=== PATIENT | female | born 1960 | race African-American/Black ===

== ENCOUNTER 2019-08-15 22:01 | Emergency (ER) | payer MEDICARE, MEDICAID, SELFPAY ==
--- NOTE | ~2019-08-15 | XR_ITS ---
XR chest 1V portable DATE: 08/16/2019 00:16 INDICATION: Dizziness TECHNIQUE: AP chest COMPARISON: 12/15/2014 2 view chest FINDINGS: Normal heart size. No hilar or mediastinal enlargement. No pulmonary infiltrate or consolid ation, pleural effusion or pulmonary vascular congestion or pneumothorax. Degenerative change of the thoracic spine. IMPRESSION: No active cardiac pulmonary disease Resolution of congestive changes compared to 12/15/2014 Reviewed, dictated and finalized at location A. ON WASHER
--- NOTE | ~2019-08-15 | CT_ITS ---
EXAMINATION: CT brain wo con DATE: 08/16/2019 00:11 INDICATION: Frontal headache. Dizziness. Nausea and vomiting. TECHNIQUE: Computed tomography (CT) of the head was performed without intravenous contrast. The mA wa s adjusted according to patient size. Iterative reconstruction technique was employed. Exam dose: 60 5.33 mGy-cm total exam DLP. COMPARISON: 05/04/2010 CT brain examination FINDINGS: Bilateral basal ganglia calcification. No intracranial mass lesion or hemorrhage or cerebro vascular accident is evident. No midline shift or mass effect. Bilateral carotid siphon internal pastrana tid artery calcifications are noted. There is nonspecific diminished attenuation of the cerebral whit e matter, likely due to chronic small vessel ischemic changes. Normal ventricular size. No subdural o r epidural hematoma. No fracture or bone destruction of the cranial vault. The mastoid air cells are normally developed an d aerated. IMPRESSION: Cerebral atherosclerosis and chronic small vessel ischemic changes of the cerebral white matter Chronic bilateral basal ganglia calcifications No acute intracranial abnormality Reviewed, dictated and finalized at [facility]. Reviewed, dictated and finalized at location A. ERSION DEVELOPER
[2019-08-15 22:06] VITALS: BP 165/98; PULSE 83; RESP 16; TEMP 36.4; O2SAT 100
--- NOTE | 2019-08-15 22:56 | ED.DIZZY ---
HPI - Dizziness General Chief Complaint: Dizziness Stated Complaint: dizzy, duarte, vomiting since 8 Time Seen by Provider: 08/15/19 22:40 Source: patient, family and RN notes reviewed Mode of arrival: ambulatory Limitations: no limitations History of Present Illness HPI Narrative: Pt is a 59 y/o female with a Hx of DM, who presents to the ED with c/o dizziness starting this evening. She notes that she developed cold symptoms, including a cough roughly 1 week ago. Pt states that she suddenly felt weak and passed out while walking from her bathroom 1 week ago. Her family notes that she was unconscious for roughly 2-3 minutes. She reports similar dizziness at that time. She notes that she hasn't taken her insulin today, and states that she had 2 shots of tequila this evening. Pt notes that she was sitting in her chair later this evening when she suddenly became dizzy. She states that she then became nauseas and vomited a total of seven times. Pt notes that the room began to spin when she tried standing up. She currently reports a frontal headache, but denies any CP or ABD pain. Pt currently takes ASA 81 mg daily. MD elicited complaint: dizziness Onset (ago): hour(s) (several) Timing: sudden onset Description: room spinning Context: at rest History of similar symptoms: Yes Exacerbating factors: change in body position Associated symptoms: nausea, vomiting and other (frontal headache; cough) Related Data Allergies Allergy/AdvReac Type Severity Reaction Status Date / Time codeine Allergy Mild RASH, Verified 08/15/19 22:18 ITCHING guaifenesin Allergy Mild RASH, Verified 08/15/19 22:18 ITCHING morphine Allergy Mild Nausea and Verified 08/15/19 22:18 Vomiting oxycodone Allergy Mild Rash Verified 08/15/19 22:18 Penicillins Allergy Unknown rash Verified 08/15/19 22:18 Review of Systems Review of Systems: All systems reviewed & are unremarkable except as noted in HPI and below Cardiovascular: Cardiovascular: Denies chest pain Respiratory: Respiratory: Reports cough Gastrointestinal: Gastrointestinal: Denies abdominal pain, Reports nausea and Reports vomiting Neurologic: Reports dizziness and Reports headache(s) (frontal) PMFSH Past Medical History Medical History Asthma Bronchitis CHF (congestive heart failure) DM type 2 (diabetes mellitus, type 2) insulin dependent GERD (gastroesophageal reflux disease) History of angina HLD (hyperlipidemia) HTN (hypertension) Migraines Myocardial infarction Surgical History Surgical History History of hysterectomy Hx of appendectomy Hx of cardiac catheterization Hx of tonsillectomy Social History Social History Smoking status: Never smoker Exam Narrative: Exam Narrative: General appearance: Well-developed, well-nourished, restless, family member at the bedside Skin: Normal color Head: Normocephalic, nontraumatic Eyes: Clear conjunctiva ENT: Oropharynx normal, ears normal, nose normal Neck: Supple, nontender Chest and respiratory: Airway patent, no respiratory distress, no accessory muscle use Heart: Regular rate/rhythm Abdomen: Soft, nontender, no organomegaly, quiet bowel sounds Vascular: Normal peripheral pulses, normal capillary refill. Musculoskeletal: Normal range of motion, nontender back Neurologic: Alert and oriented ?3, INFRASTRUCTURE TECHNICIAN is normal as tested, no gross motor deficit Course Course Emergency Course: Improving Vital Signs Vital signs: Vital Signs Temperature 36.4 C L 08/15/19 22:06 Pulse Rate 83 08/15/19 22:06 Respiratory R
[2019-08-15 23:11] VITALS: BP 170/96; PULSE 84; RESP 15; O2SAT 98
--- NOTE | 2019-08-15 23:35 | ECG_ITS ---
Measurements Intervals [place] Rate: 70 P: 51 [place]: 184 QRS: 37 QRSD: 138 T: 259 QT: 460 QTc: 498 Interpretive Statements SINUS RHYTHM WITH MARKED SINUS ARRHYTHMIA LEFT BUNDLE BRANCH BLOCK LEFT VENTRICULAR HYPERTROPHY AND ST-T CHANGE BASELINE ARTIFACT- I, II, III, AVR, AVL, AVF, V1-V6 ABNORMAL ECG Electronically Signed On 08-16-2019 7:11:47 GASTROENTEROLOGY MANAGER by Jono Kimbrough D.O.
[2019-08-15 23:36] LABS: Basophils Percent Auto 0.8 % (0.2-1.2); Eosinophils Percent Auto 0.5 % (0-4.4); Hematocrit 42.5 % (37.0-47.0); Hemoglobin 13.9 g/dL (12.0-15.0); Immature Granulocyte Absolute 0.02 K/mm3 (0.00-0.031); Immature Granulocyte Percent A 0.5 % (0-0.5); Lymphocytes Percent Auto 42.2 % (18.3-44.2); Mean Corpuscular HGB Conc 32.7 g/dl (32-36); Mean Corpuscular Hemoglobin 29.1 pg (26-34); Mean Corpuscular Volume 89.1 fl (80-100); Mean Platelet Volume 11.4 fl (7.4-10.4); Monocytes Absolute Auto 0.2 K/mm3 (0.1-0.6); Monocytes Percent Auto 5.3 % (2.6-8.5); Neutrophils Absolute Auto 1.9 K/mm3 (1.3-6.7); Neutrophils Percent Auto 50.7 % (45.5-73.1); Platelet Count Result 256 k/mm3 (150-375); Red Blood Count 4.77 M/mm3 (4.2-5.4); Red Cell Distribution Width 12.5 % (11.5-14.5); White Blood Count 3.8 K/mm3 (4.5-10.0)
[2019-08-15 23:47] LABS: Prothrombin Time 12.4 Seconds (11.1-14.7)
[2019-08-15 23:49] LABS: Alanine Aminotransferase 17 U/L (4-35); Albumin Level 4.2 g/dL (3.5-5.1); Alkaline Phosphatase 68 U/L (38-126); Aspartate Amino Transferase 20 U/L (14-36); Bilirubin,Total 0.6 mg/dL (0.2-1.3); Blood Urea Nitrogen 12 mg/dL (7-17); Calcium 8.7 mg/dL (8.4-10.2); Carbon Dioxide 27 mmol/L (22-30); Chloride 93 mmol/L (98-107); Estimated CRCL calculation 55 ml/min; Estimated Glomerular Filt Rate > 60; Glucose 249 mg/dL (65-105); Potassium 3.5 mmol/L (3.4-5.0); Sodium 136 mmol/L (137-145)
[2019-08-15 23:52] LABS: D Dimer 0.33 ug/mL (<0.48)
--- NOTE | 2019-08-15 23:56 | PC.NURSE ---
Pt family daugher Laurence Montiel- She has asked if we can check this patient to see if she is being poisoned. She stated her mother has not been feeling well for the past few months. She stated her mother has been dating a man for approx. one year. I asked if her mother has expressed any concerns or safety issues. She stated no but she is happier when he is not around . I told her I would give Dr. Cerrato the information. Dr. Cerrato given this information, he stated he will order a UDS.
[2019-08-16] LABS: Base Excess ABG 1.1 mEq/l (+/-2.0); Fractional Inspired Oxygen 21 %; HCO3 ABG 25.1 mEq/l (22.0-26.0); Oxygen Content ABG 21.2 %vol (16.0-22.0); Oxygen Saturation ABG 98.5 % (95.0-100.0); Oxyhemoglobin 96.6 % THb (90.0-100.0); PO2 ABG 122.2 mmHg (80.0-100.0); PO2 FiO2 Ratio Arterial Blood 5.82 %; Total Hemoglobin 15.5 g/dL (12.0-18.0); pH ABG 7.437 (7.350-7.450)
[2019-08-16 00:04] LABS: Device ROOM AIR; Modified Allen's Test Pass; Site Drawn RIGHT RADIAL
[2019-08-16 00:05] LABS: Troponin I < 0.012 ng/mL (0.000-0.034)
[2019-08-16 00:08] LABS: Add Urine Microscopic? YES; Appearance Urine Clear (Clear); Bacteria Urine Trace /hpf; Bilirubin Urine Negative (Negative); Blood Urine Negative (Negative); Color Urine Straw (Yellow); Glucose Urine UA 3+ mg/dL (Negative); Ketones Urine Negative (Negative); Leukocyte Esterase Ur Negative LEU/UL (Negative); Nitrate Urine Negative (Negative); Protein Urine Negative (Negative); RBC Urine 0-2 /hpf (0-2); Specific Grav Ur 1.007 (1.001-1.035); Squamous Epithelial Cell Urine Few /hpf (Few); Urobilinogen Urine Negative mg/dL (<2.0); WBC Urine 0-3 /hpf
[2019-08-16 00:21] VITALS: BP 157/87; BP 169/100; BP 184/101; PULSE 83; PULSE 84; PULSE 88
[2019-08-16 00:25] LABS: Amphetamine Screen Urine Negative (Negative); Barbiturate Screen Urine Negative (Negative); Benzodiazepines Screen Urine Negative (Negative); Cannabinoid Screen Urine Positive (Negative); Cocaine Screen Urine Negative (Negative); Methadone Screen Urine Negative (Negative); Opiate Screen Urine Negative (Negative); Phencyclidine Screen Urine Negative (Negative)
[2019-08-16 00:32] VITALS: BP 167/98; PULSE 81; RESP 20; O2SAT 100
--- NOTE | 2019-08-16 01:15 | PC.NURSE ---
Per EDP Saqib via verbal order read-back, give patient 650mg Tylenol PO.
[2019-08-16] MEDS: ACETAMINOPHEN 325 MG TABLET 650 MG PO (01:21)
[2019-08-16 01:39] VITALS: BP 153/97; PULSE 73; RESP 21; TEMP 37.1; O2SAT 100
[2019-08-19 14:59] LABS: Methyl Alcohol Level None Detected (None Detected)
== END 2019-08-16 01:40 | disposition home or self-care (01) ==
PROVIDERS: Emergency Provider Emergency Medicine; PCP Family Medicine
DX: R55 Syncope and collapse (principal); Z91.14 Patient's other noncompliance with medication regimen; F10.10 Alcohol abuse, uncomplicated; J45.909 Unspecified asthma, uncomplicated; I50.9 Heart failure, unspecified; E11.9 Type 2 diabetes mellitus without complications; K21.9 Gastro-esophageal reflux disease without esophagitis; E78.5 Hyperlipidemia, unspecified; I10 Essential (primary) hypertension; I25.2 Old myocardial infarction; Z79.4 Long term (current) use of insulin; Z79.82 Long term (current) use of aspirin; I44.7 Left bundle-branch block, unspecified; I51.7 Cardiomegaly
CPT/HCPCS: 36415; 36600; 70450; 71045; 80053; 80307; 81001; 82805; 84484; 84600; 85025; 85380; 85610; 85730; 93005; 99284; A9270

== ENCOUNTER 2019-12-02 09:03 | Outpatient (CLI) | payer MEDICARE, MEDICAID, SELFPAY ==
[2019-12-02 09:44] LABS: Basophils Absolute Auto 0.1 K/mm3 (0.0-0.1); Basophils Percent Auto 1.2 % (0.2-1.2); Eosinophils Percent Auto 0.8 % (0-4.4); Hematocrit 44.4 % (37.0-47.0); Hemoglobin 14.6 g/dL (12.0-15.0); Immature Granulocyte Absolute 0.02 K/mm3 (0.00-0.031); Immature Granulocyte Percent A 0.4 % (0-0.5); Lymphocytes Percent Auto 45.7 % (18.3-44.2); Mean Corpuscular HGB Conc 32.9 g/dl (32-36); Mean Corpuscular Hemoglobin 29.7 pg (26-34); Mean Corpuscular Volume 90.4 fl (80-100); Mean Platelet Volume 10.6 fl (7.4-10.4); Monocytes Absolute Auto 0.4 K/mm3 (0.1-0.6); Monocytes Percent Auto 7.5 % (2.6-8.5); Neutrophils Absolute Auto 2.1 K/mm3 (1.3-6.7); Neutrophils Percent Auto 44.4 % (45.5-73.1); Platelet Count Result 212 k/mm3 (150-375); Red Blood Count 4.91 M/mm3 (4.2-5.4); Red Cell Distribution Width 12.9 % (11.5-14.5); White Blood Count 4.8 K/mm3 (4.5-10.0)
[2019-12-02 09:55] LABS: Alanine Aminotransferase 26 U/L (4-35); Albumin Level 4.3 g/dL (3.5-5.1); Alkaline Phosphatase 73 U/L (38-126); Aspartate Amino Transferase 29 U/L (14-36); Bilirubin,Total 0.9 mg/dL (0.2-1.3); Blood Urea Nitrogen 13 mg/dL (7-17); Calcium 8.7 mg/dL (8.4-10.2); Carbon Dioxide 30 mmol/L (22-30); Chloride 100 mmol/L (98-107); Cholesterol 120 mg/dL (0-200); Estimated Glomerular Filt Rate 56; Glucose 162 mg/dL (65-105); HDL Direct 52 mg/dL; Potassium 4.1 mmol/L (3.4-5.0); Sodium 137 mmol/L (137-145); Triglycerides 107 mg/dL (<150)
[2019-12-02 10:04] LABS: NT Pro B Type Natriuretic Pept 109 PG/ML (5-100)
[2019-12-02 10:07] LABS: LDL Cholesterol Direct 55 mg/dL
[2019-12-02 10:26] LABS: Total Triiodothyronine (T3) 1.09 NG/ML (0.97-1.69)
[2019-12-02 10:33] LABS: Free T4 Free Thyroxine 1.27 ng/mL (0.78-2.19); Vitamin D 25 Hydroxy 18.7 ng/mL
[2019-12-02 10:51] LABS: Creatinine Urine 362.9 mg/dL; MALB Creatinine Ratio 6.5 mg/g (0-30); Microalbumin Urine Random 23.7 mg/L (0-16.7)
== END 2019-12-02 09:04 | disposition home or self-care (01) ==
PROVIDERS: PCP Family Medicine; Visit Provider Nurse Practitioner Family
DX: E11.65 Type 2 diabetes mellitus with hyperglycemia (principal); E11.22 Type 2 diabetes mellitus with diabetic chronic kidney disease; N18.2 Chronic kidney disease, stage 2 (mild); I13.0 Hypertensive heart and chronic kidney disease with heart failure and stage 1 through stage 4 chronic kidney disease, or unspecified chronic kidney disease; I50.32 Chronic diastolic (congestive) heart failure; E55.9 Vitamin D deficiency, unspecified; E78.5 Hyperlipidemia, unspecified
CPT/HCPCS: 36415; 80053; 80061; 82043; 82306; 83880; 84439; 84443; 84480; 85025

== ENCOUNTER 2019-12-18 10:18 | Emergency (ER) | payer MEDICARE, MEDICAID, SELFPAY ==
[2019-12-18] VITALS (8 sets, daily range): BP systolic 140–163; BP diastolic 82–90; PULSE 75–103; RESP 14–25; TEMP 36.2; O2SAT 98–100
--- NOTE | ~2019-12-18 | CT_ITS ---
EXAMINATION: CT brain wo con DATE: 12/18/2019 11:36 INDICATION: Syncope TECHNIQUE: Computed tomography (CT) of the head was performed without intravenous contrast. Sagittal and coronal reconstructions were performed. The mA was adjusted according to patient size. Iterative reconstruction technique was employed. The dose-length product was 605.33 mGy-cm. COMPARISON: head CT dated 08/16/2019 FINDINGS: No acute intracranial hemorrhage, acute infarction or abnormal extra axial fluid collection. No inter emilie change in symmetric pattern of chronic dystrophic versus atherosclerotic calcifications at the bi lateral basal ganglia and bilateral cerebellar hemispheres. There is mild scattered white matter hypo attenuation consistent with chronic small vessel ischemic disease. Ventricles are normal and symmetri c. No mass/mass effect. The orbits, paranasal sinuses and mastoid air cells are normal. IMPRESSION: 1. No acute intracranial process. 2. Mild scattered white matter hypoattenuation consistent with chronic small vessel ischemic disease. Reviewed, dictated and finalized at location A. IMPRESSION: 1. No acute intracranial process. 2. Mild scattered white matter hypoattenuation consistent with chronic small ve ssel ischemic disease.
--- NOTE | ~2019-12-18 | XR_ITS ---
XR chest 1V portable DATE: 12/18/2019 11:28 INDICATION: Syncope TECHNIQUE: Portable AP chest on 12/18/2019 at 1128 hours COMPARISON: 08/16/2019 AP chest FINDINGS: Normal heart size. No hilar or mediastinal enlargement. No pulmonary infiltrate or consolid ation, pleural effusion or pulmonary vascular congestion or pneumothorax. IMPRESSION: No active cardiopulmonary disease Reviewed, dictated and finalized at location A.
--- NOTE | ~2019-12-18 | CT_ITS ---
EXAMINATION: CT cervical spine wo con DATE: 12/18/2019 13:14 INDICATION: Neck pain TECHNIQUE: Computed tomography (CT) of the cervical spine was performed without intravenous contrast. The dose-length product (DLP) was 177.72 mGy-cm. Automated exposure control and iterative reconstruc tion technique were employed. COMPARISON: None FINDINGS: There is no fracture. There is advanced loss of intervertebral disc space height at C3-4 th rough C5-6. There is moderate to severe uncovertebral joint osteoarthritis at these levels. There are 2 mm of retrolisthesis of C5 on C6. The odontoid is intact. The vertebral body heights are maintaine d. Degenerative osteophytes project from the anterior endplates of multiple vertebral bodies. IMPRESSION: 1. Severe cervical spondylosis without acute findings. Reviewed, dictated and finalized at location A.
--- NOTE | 2019-12-18 10:32 | ECG_ITS ---
Measurements Intervals [place] Rate: 84 P: 37 MT: 167 QRS: 14 QRSD: 135 T: 191 QT: 417 QTc: 494 Interpretive Statements SINUS RHYTHM LEFT BUNDLE BRANCH BLOCK ABNORMAL ECG Electronically Signed On 12-18-2019 11:40:54 CDT by Jono Kimbrough D.O.
[2019-12-18 11:23] LABS: Basophils Percent Auto 0.5 % (0.2-1.2); Eosinophils Percent Auto 0.4 % (0-4.4); Hematocrit 48.2 % (37.0-47.0); Hemoglobin 16.2 g/dL (12.0-15.0); Immature Granulocyte Absolute 0.02 K/mm3 (0.00-0.031); Immature Granulocyte Percent A 0.4 % (0-0.5); Lymphocytes Absolute Auto 1.97 K/mm3 (0.9-3.2); Lymphocytes Percent Auto 35.5 % (18.3-44.2); Mean Corpuscular HGB Conc 33.6 g/dl (32-36); Mean Corpuscular Hemoglobin 30.3 pg (26-34); Mean Corpuscular Volume 90.1 fl (80-100); Mean Platelet Volume 10.5 fl (7.4-10.4); Monocytes Absolute Auto 0.3 K/mm3 (0.1-0.6); Monocytes Percent Auto 5.4 % (2.6-8.5); Neutrophils Absolute Auto 3.2 K/mm3 (1.3-6.7); Neutrophils Percent Auto 57.8 % (45.5-73.1); Platelet Count Result 263 k/mm3 (150-375); Red Blood Count 5.35 M/mm3 (4.2-5.4); Red Cell Distribution Width 12.9 % (11.5-14.5); White Blood Count 5.6 K/mm3 (4.5-10.0)
[2019-12-18] MEDS: SODIUM CHLORIDE 0.9% IV 1,000 ML 999 ML IV CONT ×2 (11:23→13:01)
[2019-12-18 11:37] LABS: Alanine Aminotransferase 30 U/L (4-35); Albumin Level 4.6 g/dL (3.5-5.1); Alkaline Phosphatase 75 U/L (38-126); Aspartate Amino Transferase 24 U/L (14-36); Blood Urea Nitrogen 17 mg/dL (7-17); Calcium 8.9 mg/dL (8.4-10.2); Carbon Dioxide 36 mmol/L (22-30); Chloride 96 mmol/L (98-107); Estimated CRCL calculation 46 ml/min; Estimated Glomerular Filt Rate 56; Glucose 140 mg/dL (65-105); Magnesium 1.9 mg/dL (1.6-2.3); Potassium 3.5 mmol/L (3.4-5.0); Sodium 137 mmol/L (137-145)
--- NOTE | 2019-12-18 11:38 | ED.SYNCOPE ---
HPI - Syncope General Chief Complaint: Syncope Stated Complaint: high blood pressure, blacked out Time Seen by Provider: 12/18/19 11:06 Source: patient Mode of arrival: ambulatory Limitations: no limitations History of Present Illness HPI narrative: Patient is a 59-year-old female who presents to emergency department for evaluation of 2 syncopal episodes that occurred this morning patient notes once in the shower and then again shortly thereafter patient notes that she does believe she hit her head and does have moderate headache. Patient denies other pain or complaint notes that she has not been sick denies sick contacts. Patient denies similar occurrence. Patient notes history of type 2 diabetes and hypertension. Patient notes she did recently have her blood pressure medicine increased by primary care. On arrival patient in the room in no distress resting comfortably Related Data Home Medications Medication Instructions Recorded Confirmed amlodipine 12/18/19 aspirin [Aspir-81] 81 mg PO DAILY 12/18/19 atorvastatin 12/18/19 canagliflozin 20 mg PO DAILY 12/18/19 furosemide 12/18/19 glipizide mg PO 12/18/19 hydralazine BID 12/18/19 insulin glargine [Lantus Solostar SUBCUT 12/18/19 U-100 Insulin] metoprolol succinate PO 12/18/19 omeprazole PO 12/18/19 sitagliptin 100 mg PO DAILY 12/18/19 spironolacton-hydrochlorothiaz 25 DAILY 12/18/19 Allergies Allergy/AdvReac Type Severity Reaction Status Date / Time codeine Allergy Mild RASH, Verified 12/18/19 11:23 ITCHING guaifenesin Allergy Mild RASH, Verified 12/18/19 11:23 ITCHING morphine Allergy Mild Nausea and Verified 12/18/19 11:23 Vomiting oxycodone Allergy Mild Rash Verified 12/18/19 11:23 Penicillins Allergy Unknown rash Verified 12/18/19 11:23 Review of Systems Review of Systems: All systems reviewed & are unremarkable except as noted in HPI and below PMFSH Past Medical History Medical History Asthma Bronchitis CHF (congestive heart failure) DM type 2 (diabetes mellitus, type 2) insulin dependent GERD (gastroesophageal reflux disease) History of angina HLD (hyperlipidemia) HTN (hypertension) Migraines Myocardial infarction Surgical History Surgical History History of hysterectomy Hx of appendectomy Hx of cardiac catheterization Hx of tonsillectomy Social History Social History Smoking status: Never smoker Gender identity (if verbalized by the patient): Female Exam Narrative: Exam Narrative: GENERAL: Well-appearing, well-nourished, and in no acute distress. HEAD: Normocephalic, atraumatic. EYES: PERRLA and EOMI. ENT: Nares clear, no rhinorrhea or epistaxis. Mucous membranes moist. Oropharynx without tonsillar hypertrophy exudate or other lesions. NECK: Supple. No adenopathy or masses. CHEST: Clear to auscultation. No respiratory distress. No wheezes rales or rhonchi HEART: Regular rate and rhythm. No murmur heard. Normal peripheral pulses. ABDOMEN: Soft, nontender, nondistended EXTREMITIES: Normal range of motion. No edema. No tenderness to palpation on the skeletal exam to include cervical thoracic lumbar and extremities SKIN: Warm, dry, no rash. NEURO: No focal deficits. Alert and oriented x3. Cranial nerves II through XII grossly intact PSYCH: Normal mood and affect. Course Course Emergency Course: Patient in the room resting comfortably in no distress aware of recommendations and discussion with hospitalist service and primary care and agrees to follow in clinic as instructed Consultations Consultation #[address]: [address] Camacho hospitalist regarding this patient does not feel the patient should need to stay in hospital and has not accepted the patient and recommends that she follow with primary care Discussed patient with Dr. Justice
[2019-12-18 11:39] LABS: INR 0.8
[2019-12-18 11:40] LABS: Partial Thromboplastin Time 22.5 SECONDS (22.3-36.8)
[2019-12-18 11:41] LABS: Add Urine Microscopic? YES; Appearance Urine Clear (Clear); Bacteria Urine 1+ /hpf; Bilirubin Urine Negative (Negative); Blood Urine Negative (Negative); Color Urine Yellow (Yellow); Glucose Urine UA Negative (Negative); Ketones Urine Negative (Negative); Leukocyte Esterase Ur Negative LEU/UL (Negative); Mucus Urine Rare /lpf; Nitrate Urine Positive (Negative); Protein Urine Negative (Negative); RBC Urine 0-2 /hpf (0-2); Specific Grav Ur 1.014 (1.001-1.035); Squamous Epithelial Cell Urine Many /hpf (Few); Urobilinogen Urine Negative mg/dL (<2.0)
[2019-12-18 11:45] LABS: NT Pro B Type Natriuretic Pept 141 PG/ML (5-100)
[2019-12-18 11:48] LABS: Troponin I < 0.012 ng/mL (0.000-0.034)
[2019-12-18 11:58] LABS: Amphetamine Screen Urine Negative (Negative); Barbiturate Screen Urine Negative (Negative); Benzodiazepines Screen Urine Negative (Negative); Cannabinoid Screen Urine Negative (Negative); Cocaine Screen Urine Negative (Negative); Methadone Screen Urine Negative (Negative); Opiate Screen Urine Negative (Negative); Phencyclidine Screen Urine Negative (Negative)
--- NOTE | 2019-12-18 13:05 | PC.NURSE ---
Pt to xray via stretcher.
[2019-12-18] MEDS: KETOROLAC 30 MG/ML VIAL (*BKC) IV PUSH (13:45)
== END 2019-12-18 14:24 | disposition home or self-care (01) ==
PROVIDERS: Emergency Medicine Emergency Medical Services; Emergency Provider Emergency Medicine; PCP Family Medicine
DX: R55 Syncope and collapse (principal); N39.0 Urinary tract infection, site not specified; Z95.0 Presence of cardiac pacemaker; J45.909 Unspecified asthma, uncomplicated; I11.0 Hypertensive heart disease with heart failure; I50.9 Heart failure, unspecified; E11.9 Type 2 diabetes mellitus without complications; Z79.4 Long term (current) use of insulin; K21.9 Gastro-esophageal reflux disease without esophagitis; E78.5 Hyperlipidemia, unspecified; I25.2 Old myocardial infarction; I44.7 Left bundle-branch block, unspecified; M47.812 Spondylosis without myelopathy or radiculopathy, cervical region
CPT/HCPCS: 36415; 70450; 71045; 72125; 80053; 80307; 81001; 83735; 83880; 84100; 84484; 85025; 85610; 85730; 93005; 96361; 96365; 96367; 96375; 99284; J0131; J0696; J1885; J7030

== ENCOUNTER 2021-03-24 08:12 | Outpatient (CLI) | payer MEDICARE, MEDICAID, SELFPAY ==
--- NOTE | ~2021-03-24 | MM_ITS ---
EXAMINATION: MM screening ryan BI w errol HISTORY: Screening TECHNIQUE: Craniocaudal and mediolateral oblique 3-D tomosynthesis images were obtained and synthetic 2-D images were generated. CAD analysis was submitted and interpreted. COMPARISON: 02/23/2015 BREAST PARENCHYMAL COMPOSITION: Breast composed of scattered areas of fibroglandular density. FINDINGS: There is no evidence of suspicious mass, calcification, or architectural distortion to sugg est malignancy in either breast. There has been no suspicious interval change. IMPRESSION: 1. No mammographic evidence of malignancy. 2. Recommend routine screening mammography in one year. BI-RADS Category 1: Negative Reviewed, dictated and finalized at location A.
== END 2021-03-24 08:13 | disposition home or self-care (01) ==
PROVIDERS: PCP Family Medicine; Visit Provider Family Medicine
DX: Z12.31 Encounter for screening mammogram for malignant neoplasm of breast (principal)
CPT/HCPCS: 77063; 77067

== ENCOUNTER 2021-10-20 13:25 | Observation (INO) | payer OTHER, SELFPAY ==
[2021-10-20] VITALS (13 sets, daily range): BP systolic 143–186; BP diastolic 54–114; PULSE 73–94; RESP 18–20; TEMP 36.3–36.7; O2SAT 97–100; BMI 29.5
--- NOTE | ~2021-10-20 | XR_ITS ---
XR chest 2V DATE: 10/20/2021 13:54 . INDICATION: Generalized chest pain. Shortness of breath. TECHNIQUE: PA and lateral views COMPARISON: 12/18/2019 portable AP chest FINDINGS: Normal heart size. No hilar or mediastinal enlargement. No pulmonary infiltrate or consolid ation, pleural effusion or pulmonary vessel congestion or pneumothorax. Mild degenerative spurring of the thoracic spine. IMPRESSION: No active cardiopulmonary disease Reviewed, dictated and finalized at location A.
--- NOTE | ~2021-10-20 | CT_ITS ---
EXAMINATION: CTA chest DATE: 10/21/2021 13:56 INDICATION: Chest pain radiating to back. Uncontrolled hypertension. Evaluate for aortic dissection. TECHNIQUE: Computed tomography (CT) of the chest was performed with 100 CC Omnipaque 350 intravenous contrast. Automated exposure control and iterative reconstruction technique were employed. Exam dose: 333.03 mGy-cm total exam DLP. COMPARISON: 10/20/2021 PA and lateral chest FINDINGS: No thoracic aortic aneurysm or dissection. Normal heart size. No hilar or mediastinal mass lesion or lymphadenopathy. No pulmonary infiltrate or consolidation or pulmonary mass lesion. 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 Diff fuse idiopathic skeletal hyperostosis of the thoracic spine. No suspicious osteolytic or osteoblastic lesions. IMPRESSION: No evidence of thoracic aortic aneurysm or dissection Reviewed, dictated and finalized at [facility]. Reviewed, dictated and finalized at location [facility].
--- NOTE | 2021-10-20 13:28 | ECG_ITS ---
Measurements Intervals [place] Rate: 68 P: 47 [place]: 170 QRS: 14 QRSD: 138 T: 124 QT: 425 QTc: 453 Interpretive Statements SINUS RHYTHM POSSIBLE LEFT ATRIAL ENLARGEMENT [-0.1mV P WAVE IN V1/V2] INTRAVENTRICULAR CONDUCTION DELAY [130+ ms QRS DURATION] LEFT VENTRICULAR HYPERTROPHY AND ST-T CHANGE [VOLTAGE CRITERIA PLUS ST/T ABNORMALITY] POOR R-WAVE PROGRESSION, WORSE COMPARED TO THE PRIOR TRACING. Electronically Signed On 10-20-2021 13:54:09 CDT by Rosemarie Lozano M.D.
[2021-10-20 13:49] LABS: Basophils Percent Auto 0.9 % (0.2-1.2); Eosinophils Percent Auto 0.9 % (0-4.4); Hematocrit 44.3 % (37.0-47.0); Hemoglobin 15.1 g/dL (12.0-15.0); Immature Granulocyte Absolute 0.02 K/mm3 (0.00-0.031); Immature Granulocyte Percent A 0.5 % (0-0.5); Lymphocytes Absolute Auto 2.11 K/mm3 (0.9-3.2); Lymphocytes Percent Auto 47.7 % (18.3-44.2); Mean Corpuscular HGB Conc 34.1 g/dl (32-36); Mean Corpuscular Hemoglobin 29.6 pg (26-34); Mean Corpuscular Volume 86.9 fl (80-100); Mean Platelet Volume 11.3 fl (7.4-10.4); Monocytes Absolute Auto 0.3 K/mm3 (0.1-0.6); Monocytes Percent Auto 7.2 % (2.6-8.5); Neutrophils Absolute Auto 1.9 K/mm3 (1.3-6.7); Neutrophils Percent Auto 42.8 % (45.5-73.1); Platelet Count Result 202 k/mm3 (150-375); Red Cell Distribution Width 12.1 % (11.5-14.5); White Blood Count 4.4 K/mm3 (4.5-10.0)
[2021-10-20 14:01] LABS: Alanine Aminotransferase 23 U/L (4-35); Albumin Level 4.2 g/dL (3.5-5.1); Alkaline Phosphatase 95 U/L (38-126); Anion Gap 4 mmol/L (8-16); Aspartate Amino Transferase 22 U/L (14-36); Blood Urea Nitrogen 14 mg/dL (7-17); Calcium 8.5 mg/dL (8.4-10.2); Carbon Dioxide 29 mmol/L (22-30); Chloride 100 mmol/L (98-107); Estimated CRCL calculation 60 ml/min; Estimated Glomerular Filt Rate > 60; Glucose 299 mg/dL (65-110); Lipase 61 U/L (23-300); Potassium 4.2 mmol/L (3.4-5.0); Sodium 133 mmol/L (137-145)
[2021-10-20 14:08] LABS: Partial Thromboplastin Time 25.7 SECONDS (22.3-36.8); Prothrombin Time 12.4 Seconds (11.1-14.7)
[2021-10-20 14:12] LABS: Troponin I < 0.012 ng/mL (0.000-0.034)
[2021-10-20] MEDS: ASPIRIN 81 MG CHEWABLE TABLET 324 MG PO (14:37)
--- NOTE | 2021-10-20 14:55 | ED.CHESTPAIN ---
HPI - Chest Pain General Chief Complaint: Chest Pain Stated Complaint: high bp chest pain Time Seen by Provider: 10/20/21 14:45 Source: patient Mode of arrival: ambulatory Limitations: no limitations History of Present Illness HPI narrative: Patient is a 59-year-old female complaining of chest pain, midsternal, nonradiating, pressure, 8 out of 10, earlier this morning lasted for an hour and now resolved. Patient had her first visit with her new PCP and told about the chest pain she had this morning so she was advised to go to the emergency room. Patient denies any abdominal pain, nausea, vomiting, diaphoresis, fever or chills. Related Data Home Medications Medication Instructions Recorded Confirmed amlodipine 12/18/19 aspirin [Aspir-81] 81 mg PO DAILY 12/18/19 atorvastatin 12/18/19 canagliflozin 20 mg PO DAILY 12/18/19 furosemide 12/18/19 glipizide mg PO 12/18/19 hydralazine BID 12/18/19 insulin glargine [Lantus Solostar SUBCUT 12/18/19 U-100 Insulin] metoprolol succinate PO 12/18/19 omeprazole PO 12/18/19 sitagliptin 100 mg PO DAILY 12/18/19 spironolacton-hydrochlorothiaz 25 DAILY 12/18/19 Allergies Allergy/AdvReac Type Severity Reaction Status Date / Time codeine Allergy Mild RASH, Verified 10/20/21 14:35 ITCHING guaifenesin Allergy Mild RASH, Verified 10/20/21 14:35 ITCHING morphine Allergy Mild Nausea and Verified 10/20/21 14:35 Vomiting oxycodone Allergy Mild Rash Verified 10/20/21 14:35 Penicillins Allergy Unknown rash Verified 10/20/21 14:35 Review of Systems Review of Systems: All systems reviewed & are unremarkable except as noted in HPI and below Constitutional: Constitutional: Denies body ache(s), Denies chills, Denies excessive sweating, Denies fatigue, Denies fever(s), Denies headache(s), Denies lethargy, Denies malaise, Denies weakness and Denies weight loss Eyes: Eyes: Denies blurry vision, Denies change in vision and Denies loss of vision ENT: Denies dizziness, Denies ear discharge, Denies headache(s), Denies lip swelling, Denies epistaxis, Denies nasal congestion, Denies neck pain, Denies throat swelling and Denies tongue swelling Cardiovascular: Cardiovascular: Denies diaphoresis, Denies rapid heart rate, Denies edema, Denies irregular heart rhythm, Denies lightheadedness and Denies palpitations Respiratory: Respiratory: Denies chest congestion, Denies cough, Denies hemoptysis, Denies dyspnea and Denies dyspnea on exertion Gastrointestinal: Gastrointestinal: Denies abdominal pain, Denies melena, Denies hematochezia, Denies diarrhea, Denies nausea, Denies vomiting and Denies hematemesis Musculoskeletal: Musculoskeletal: Denies abnormal gait, Denies deformity, Denies joint swelling, Denies limited range of motion, Denies neck pain and Denies numbness Neurologic: Denies Abnormal speech present, Denies abnormal gait, Denies confusion, Denies dizziness, Denies headache(s), Denies focal weakness, Denies loss of vision, Denies numbness, Denies Other visual disturbances, Denies Sensory deficit (Neuro) and Denies weakness Psychiatric: Psychiatric: Denies confusion, Denies depression, Denies auditory hallucinations, Denies homicidal ideation and Denies suicidal ideation Endocrine: Endocrine: Denies cold intolerance, Denies excessive sweating, Denies fatigue, Denies heat intolerance and Denies palpitations Hematologic/Lymphatic: Hematologic/Lymphatic: Denies easy bleeding and Denies easy bruising Allergic/Immunologic: Allergic/Immunologic: Denies lip swelling, Denies throat swelling and Denies tongue swelling [facility] Past Medical History Medical History (Updated 10/20/21 @ 16:30 by Moo Carrizales MD) Asthma Bronchitis CHF (congestive heart failure) DM type 2 (diabetes mellitus, type 2) insulin dependent GERD (gastroesophageal reflux disease) History of angina HLD (hyperlipidemia) HTN (hypertension) Migraines Myocardial infarction Surgical History Surgical History
[2021-10-20 15:21] LABS: NT Pro B Type Natriuretic Pept 174 pg/mL (5-100)
[2021-10-20 16:47] LABS: Troponin I < 0.012 ng/mL (0.000-0.034)
--- NOTE | 2021-10-20 17:47 | ADMGEN ---
This patient, Suze Munoz, was admitted to IMU Room 209-01. Patient/family oriented to hospital policies and general routines including ID bracelet, bed and alarms, visiting hours, pain management, procedures, bathroom and other care routines, personal items, smoking policy, room service/diet, and visiting hours. Information on how to activate the Rapid Response Team has been discussed. Patient/Family are encouraged to report perceived risks to care and to ask questions if they do not understand what they are told or what they should do.
[2021-10-20 19:49] LABS: Troponin I < 0.012 ng/mL (0.000-0.034)
--- NOTE | 2021-10-20 21:32 | PM.IMHP ---
H&P: HPI History of Present Illness Date/Time: Patient was placed observation status for expected length of stay less than 23 hours for management, will plan to re-evaluate tomorrow for improvement. 10/20/21 21:32 Chief Complaint: Chest pain Narrative: Ms. Alexander Reyes was female who presented to the emergency room with complaints of left-sided breast pain that radiated to her back and dyspnea on exertion. Patient states that the pain is off and on throughout the day today and last approximately 15 minutes at a time. Patient states that when she sits down to relax the pain goes away. Patient states that she feels somewhat short of breath with the pain, stating it hurts to take a deep breath so that is why she feels short of breath with the pain. Patient states she has noted some dyspnea on exertion over the last few days. Patient states she used to see Dr. Bergman at [facility] for her congestive heart failure. Patient states she did have a myocardial infarction 2014 and underwent cardiac catheterization and no stents were placed at that time. Patient states that she has been taking most of her medications, but she did run out of some over a month ago and since she has had to change insurance companies and does not have a primary care at this time she has not been able to get them filled. Patient states she has been taking her insulin and some of her cardiac medications, but she is not able to tell me which medications. Patient denies any lightheadedness, dizziness, palpitations, edema, or weight gain. As already stated patient states she had a myocardial infarction 2014 and underwent cardiac catheterization with no stent placement. Patient states she does have a history of congestive heart failure, hypertension, and diabetes mellitus. Patient states she had been following at [facility] for her heart, but since she has had an insurance change she will not be able to do this. Review of Systems Review of Systems: A 12 point review of systems was completed patient all pertinent positive and negative per HPI the remainder are unremarkable. [facility] Past Medical History Medical History (Updated 10/20/21 @ 21:56 by Yvette Doran APRN) Asthma Bronchitis CHF (congestive heart failure) DM type 2 (diabetes mellitus, type 2) insulin dependent GERD (gastroesophageal reflux disease) History of angina HLD (hyperlipidemia) HTN (hypertension) Migraines Myocardial infarction Surgical History Surgical History History of hysterectomy Hx of appendectomy Hx of cardiac catheterization Hx of tonsillectomy Family History Family History (Updated 10/20/21 @ 17:42 by Esme Lewis RN) Sibling Acute myocardial infarction Congestive heart failure Social History Social History Smoking status: Never smoker Alcohol intake: never Substance use: never Gender identity (if verbalized by the patient): Female Spiritual care concerns: No Meds Home Medications and Allergies Home Medications Medication Instructions Recorded Confirmed Type amlodipine 10 mg PO HS 12/18/19 10/20/21 History aspirin [Aspir-81] 81 mg PO HS 12/18/19 10/20/21 History atorvastatin 20 mg PO HS 12/18/19 10/20/21 History furosemide 40 mg PO HS 12/18/19 10/20/21 History glipizide 10 mg PO BIDWM 12/18/19 10/20/21 History hydralazine 200 mg PO HS 12/18/19 10/20/21 History insulin glargine [Lantus Solostar 25 unit SUBCUT DAILY 12/18/19 10/20/21 History U-100 Insulin] metoprolol succinate 100 mg PO HS 12/18/19 10/20/21 History omeprazole 20 mg PO HS 12/18/19 10/20/21 History sitagliptin 100 mg PO HS 12/18/19 10/20/21 History blood sugar diagnostic [True 10/20/21 10/20/21 History Metrix Glucose Test Strip] canagliflozin [Invokana] 100 mg PO DAILY 10/20/21 10/20/21 History carvedilol 25 mg PO HS 10/20/21 10/20/21 History ergoc
[2021-10-20 21:56] LABS: Glucose Point of Care 461 mg/dl (65-105)
[2021-10-20] MEDS: METOPROLOL SUCCINATE EXT REL 100 MG TABCR PO (22:57)
[2021-10-20] MEDS: FUROSEMIDE 40 MG TABLET PO (22:57)
[2021-10-20] MEDS: amLODIPine BESYLATE 5 MG TABLET 10 MG PO (22:57)
[2021-10-20] MEDS: carvediloL 25 MG TABLET PO (22:58)
[2021-10-20] MEDS: ISOSORBIDE DINITRATE 10 MG TABLET PO (22:58)
[2021-10-20] MEDS: SPIRONOLACTONE 25 MG TABLET PO (22:58)
[2021-10-20] MEDS: ATORVASTATIN 20 MG TABLET PO (22:58)
[2021-10-20] MEDS: ENOXAPARIN 40 MG/0.4 ML SYRINGE SUB-Q (22:59)
[2021-10-20] MEDS: hydrALAZINE HCL 50 MG TABLET 200 MG PO (22:59)
[2021-10-21] VITALS (10 sets, daily range): BP systolic 95–115; BP diastolic 52–66; PULSE 75–90; RESP 14–18; TEMP 36.6–37.2; O2SAT 96–100
--- NOTE | 2021-10-21 | ECHO_ITS ---
Patient Info Name: Suze Munoz Age: 61 years : 1960 Gender: Female Ht: 65 in Wt: 177 lbs BSA: 1.94 m2 HR: 78 bpm Technical Quality: Good Exam Date: 10/21/2021 9:26 AM Exam Location: [facility] Pulmonary Exam Room: [facility] Patient Status: Outpatient Admit Date: 10/20/2021 Staff Ordering Physician: Yvette Doran APRN Tin Can Laborer: Katherine Rodrigues RDCS Attending Provider: Jose Mcpherson MD Referring Physician: Ronen CALIXTO Exam Type: CA echo doppler color flow Study Info Indications - chest pain h/o chf Complete two-dimensional, color flow and Doppler transthoracic echocardiogram is performed. Summary 1. Complete two-dimensional, color flow and Doppler transthoracic echocardiogram is performed. 2. Left ventricular systolic function is normal, estimated at 55-60%. 3. There is mildly increased left ventricular wall thickness. 4. Left ventricular septal wall motion is abnormal with septal motion related to bundle branch block. 5. The left ventricular diastolic function is grade I diastolic dysfunction. 6. There is mild mitral valve calcification. 7. There is trace mitral valve regurgitation. 8. There is trace tricuspid valve regurgitation. 9. No pulmonary hypertension, estimated pulmonary arterial systolic pressure is 27 mmHg. Left Ventricle Left ventricular chamber dimension is normal. Left ventricular systolic function is normal, estimated at 55-60%. There is mildly increased left ventricular wall thickness. Left ventricular septal wall motion is abnormal with septal motion related to bundle branch block. The left ventricular diastolic function is grade I diastolic dysfunction. Right Ventricle Right ventricular chamber dimension is normal. Right ventricular systolic function is normal. Left Atria Left atrial chamber dimension is normal. Right Atria Right atrial chamber dimension is normal. Atrial Septum Intact interatrial septum visualized by color flow imaging. Aortic Valve The aortic valve is trileaflet. There is no aortic valve sclerosis. There is no aortic valve stenosis. There is no aortic valve regurgitation. Pulmonic Valve The pulmonic valve is normal. There is no pulmonic valve stenosis. There is no pulmonic regurgitation. Mitral Valve The mitral valve has normal leaflets. There is no mitral valve stenosis. There is trace mitral valve regurgitation. There is mild mitral valve calcification. Tricuspid Valve The tricuspid valve leaflets are normal. There is no significant tricuspid valve stenosis. There is trace tricuspid valve regurgitation. No pulmonary hypertension, estimated pulmonary arterial systolic pressure is 27 mmHg. Pericardium/Pleural The pericardium appears normal. There is no pericardial effusion. Inferior Vena Cava Normal inferior vena cava with >50% collapse upon inspiration consistent with Empty right atrial pressure, 5 mmHg. Aorta The aortic root size at the sinus of Valsalva is normal. The prox ascending aorta size is normal. Left Ventricular Outflow Tract Name Value Normal LVOT 2D LVOT Diameter 2.0 cm LVOT Doppler
[2021-10-21 05:11] LABS: Basophils Percent Auto 0.5 % (0.2-1.2); Eosinophils Percent Auto 0.3 % (0-4.4); Hematocrit 40.2 % (37.0-47.0); Hemoglobin 13.7 g/dL (12.0-15.0); Immature Granulocyte Absolute 0.04 K/mm3 (0.00-0.031); Immature Granulocyte Percent A 0.7 % (0-0.5); Lymphocytes Absolute Auto 1.11 K/mm3 (0.9-3.2); Lymphocytes Percent Auto 18.3 % (18.3-44.2); Mean Corpuscular HGB Conc 34.1 g/dl (32-36); Mean Platelet Volume 11.8 fl (7.4-10.4); Monocytes Absolute Auto 0.4 K/mm3 (0.1-0.6); Monocytes Percent Auto 5.8 % (2.6-8.5); Neutrophils Absolute Auto 4.5 K/mm3 (1.3-6.7); Neutrophils Percent Auto 74.4 % (45.5-73.1); Platelet Count Result 199 k/mm3 (150-375); Red Blood Count 4.57 M/mm3 (4.2-5.4); Red Cell Distribution Width 12.4 % (11.5-14.5); White Blood Count 6.1 K/mm3 (4.5-10.0)
[2021-10-21 05:25] LABS: Anion Gap 7 mmol/L (8-16); Blood Urea Nitrogen 19 mg/dL (7-17); Calcium 8.4 mg/dL (8.4-10.2); Carbon Dioxide 27 mmol/L (22-30); Chloride 99 mmol/L (98-107); Estimated CRCL calculation 42 ml/min; Estimated Glomerular Filt Rate 50; Glucose 397 mg/dL (65-110); Magnesium 1.8 mg/dL (1.6-2.3); Potassium 4.3 mmol/L (3.4-5.0); Sodium 133 mmol/L (137-145)
[2021-10-21 06:47] LABS: Hemoglobin A1C 10.6 % (<5.7)
[2021-10-21 08:25] LABS: Glucose Point of Care 316 mg/dl (65-105)
[2021-10-21] MEDS: INSULIN ASPART (*BKC) 100 UNITS/ML SUB-Q ×2 (09:16→14:20)
[2021-10-21] MEDS: INSULIN GLARGINE (*BKC) 100 UNITS/ML 25 UNITS SUB-Q (09:18)
[2021-10-21] MEDS: glipiZIDE XL 5 MG TABCR 10 MG PO (09:25)
[2021-10-21] MEDS: CANAGLIFLOZIN 100 MG TABLET PO (09:26)
[2021-10-21] MEDS: THERAPEUTIC MULTIVITAMINS/MINERALS TAB (*BKC) 1 TABLET PO (09:26)
[2021-10-21] MEDS: LOSARTAN POTASSIUM 25 MG TABLET PO (09:26)
--- NOTE | 2021-10-21 09:34 | PM.CNCAR ---
Assessment and Plan Assessment and plan (1) Chest pain: Qualifiers: Chest pain type: chest pain due to myocardial ischemia Ischemic chest pain type: stable angina pectoris Qualified Code(s): I20.8 - Other forms of angina pectoris Code(s): R07.9 - Chest pain, unspecified Status: Acute Assessment and Plan: Normal troponins. Atypical CP. Probably related to hypertension, with some muscular skeletal component as she has some tenderness to touch. Doubt cardiac issue. However, since it radiates to the back and she was admitted with severe uncontrolled hypertension we should check a CTA to make sure there is no aortic dissection etc. If Echo shows nothing surprising and CT OK, OK for discharge from my point of view. FU w/ usual inspector penetrant (2) Uncontrolled hypertension: Code(s): I10 - Essential (primary) hypertension Status: Acute Assessment and Plan: Running high at home, despite compliance w/ BP meds, but now doing fine. CYNTHIA w/ Dr. Aparicio and new inspector penetrant as OPT. (3) Stage 3b chronic kidney disease (CKD): Code(s): N18.32 - Chronic kidney disease, stage 3b Status: Acute Assessment and Plan: CKD stage 3b 2nd to DM and HTN (4) H/O CHF: Code(s): Z86.79 - Personal history of other diseases of the circulatory system Status: Acute Assessment and Plan: H/O CHF and cardiomyopathy. NO CHF at present. Additional Plan Addendum: Echo showed nml LV fxn, mild LVH and CT chest neg for dissection, OK for discharge. History of Present Illness History of Present Illness Consult date/time: 10/21/21 09:34 Requesting physician: Moo Carrizales MD Consult reason: chest pain Reason For Visit: Chest Pain Narrative: Suze Munoz is a 61 y.o. female whom I was asked to see at the request of Dr. Carrizales for my advice and opinion re: her chest pain and h/o CHF, in consultation. History of cardiomyopathy, difficult to control hypertension, CHF, diabetes, left bundle-branch block The patient has been followed Dr. Laughlin, last seen in June 2019. History of CHF and cardiomyopathy with a ejection fraction of 25% in 2014. Chest pain with cardiac catheterization in 2016 showing normal coronary arteries. She recently has been followed by Dr. Bergman at [facility], last time being in in March 2021 for difficult to control hypertension and poorly controlled diabetes. He increased her Lasix from 40-60 mg daily. She had a negative stress test in 2018 and her echo in September 2020 showed normal LV function, LVH. She did have a stress test done in March 2021, showing normal perfusion with an ejection fraction of 60%. She had run out of 2 diabetes medicines recently but states that she has been complant with her hypertension medicines. The patient has not felt well for day or two. She has chronic MCCLOUD but breathing seemed worse last evening. She had some chest pain yesterday morning, which she described as a sharp heaviness in the left chest radiating to the left scapula lasting for 15 minutes. She has been having headache with some nausea and a little dizziness. She saw her new primary care doctor yesterday, Dr. Rob Newell, who found her A1c was very high, was concerned about her high blood pressure and her chest pain I recommended she follow-up with a new inspector penetrant, . However First he recommended she come to the emergency. Blood pressure on admission was running 156-186/102/114. I am not sure if she received any particular treatment but this morning her blood pressures running in the 90s. She had some more mild chest discomfort rate to the back last night and very briefly this morning. Review of Systems Constitutional: Constitutional: Reports fatigue Eyes: Eyes: Reports no additional eye complaints ENT: Denies epistaxis Cardiovascular: Cardiovascular: Reports chest pain, Reports pedal edema and Reports lightheadedness
--- NOTE | 2021-10-21 10:15 | PM.IMPN ---
Progress Note: A&P Additional Plan 61 yr old female who presented to the emergency room with complaints of left-sided breast pain that radiated to her back and dyspnea on exertion. Patient stated that the pain is off and on throughout the day and lasts approximately 15 minutes at a time. Patient states that when she sits down to relax the pain goes away. Patient states that she feels somewhat short of breath with the pain, stating it hurts to take a deep breath so that is why she feels short of breath with the pain. Patient states she has noted some dyspnea on exertion over the last few days. Patient states she used to see Dr. Bergman at [facility] for her congestive heart failure. Patient states she did have a myocardial infarction 2014 and underwent cardiac catheterization and no stents were placed at that time. Patient states that she has been taking most of her medications, but she did run out of some over a month ago and since she has had to change insurance companies and does not have a primary care at this time she has not been able to get them filled. Patient states she has been taking her insulin and some of her cardiac medications, but she is not able to tell me which medications. Patient denies any lightheadedness, dizziness, palpitations, edema, or weight gain. As already stated patient states she had a myocardial infarction 2014 and underwent cardiac catheterization with no stent placement. Patient states she does have a history of congestive heart failure, hypertension, and diabetes mellitus. Patient states she had been following at [facility] for her heart, but since she has had an insurance change she will not be able to do this. #Chest pain: -chest pain does sound atypical in nature. Patient states he has a history of myocardial infarction but had a cardiac catheterization that showed no coronary artery disease. Patient states she did follow with new accounts banking representative at [facility] for her heart failure. -patient has had 3 negative troponin. EKG shows a normal sinus rhythm with left bundle-branch block which is no change from previous. -new accounts banking representative consulted, await recommendations. #THOMAS: new problem -creatinine elevated to 1.3 from 0.9 on admission. -could be related to dehydration. -discontinued home furosemide for now. -IV 0.9% saline at 100ml/hr, follow up BMP tomorrow. #Headache: -Tylenol PRN provided. #Chronic congestive heart failure (CHF): -continue with home medications. -Cardiology has been consulted, appreciate further recommendations. Will have echo Doppler performed. #Uncontrolled DM type 2 (diabetes mellitus, type 2) with hyperglycemia: -hemoglobin A1c of 10.6 -FBG of 397 -increase glargine to 35units daily. -continue with home medications. -continue blood glucose monitoring before meals and at bedtime with sliding scale insulin available. Time Spent With Patient Time with patient: 15 - 25 minutes Subjective Date/time seen: 10/21/21 10:15 Patient seen lying comfortably in bed, her only complain was headache. No current chest pain. Exam Const: General: cooperative, comfortable and no acute distress Resp: Effort & Inspection: normal respiratory effort and able to speak in complete sentences Auscultation: clear to auscultation bilaterally Cardio: Rate: regular rate Rhythm: regular rhythm Heart sounds: S1 normal heart sound present and S2 normal heart sound present GI: Inspection: normal to inspection and no edema GI Palp: No abdominal tenderness Auscultation: normal bowel sounds Neuro: General: oriented to person, oriented to place, oriented to time and no focal motor deficits Extrem: General: normal to inspection and full ROM Objective Data Vital Signs Vital Signs: Vital Signs - 24 hr 10/20/21 13:29 10/20/21 14:34 10/20/21 16:32 Temperature 97.5 F L Pulse Rate 79 80 79 Respiratory Rate 20 20 Blood Pressure 186/114 H 156/102 H Pulse Oximetry 99 100 100
[2021-10-21] MEDS: SODIUM CHLORIDE 0.9% IV 500 ML 125 ML IV CONT (11:29)
[2021-10-21] MEDS: SODIUM CHLORIDE 0.9% IV 1,000 ML 100 ML IV CONT (11:30)
[2021-10-21 13:01] LABS: Glucose Point of Care 207 mg/dl (65-105)
--- NOTE | 2021-10-21 15:58 | PM.DS ---
DS: Admitting Diagnosis Discharge Date 10/21/2021 Admitting Diagnosis #Chest pain #Heart failure #T2DM DS: Discharge Diagnosis Discharge Diagnosis (1) Chest pain: Qualifiers: Chest pain type: chest pain due to myocardial ischemia Ischemic chest pain type: stable angina pectoris Qualified Code(s): I20.8 - Other forms of angina pectoris Code(s): R07.9 - Chest pain, unspecified Status: Acute (2) Uncontrolled hypertension: Code(s): I10 - Essential (primary) hypertension Status: Acute (3) Congestive heart failure (CHF): Qualifiers: Heart failure chronicity: unspecified Heart failure type: unspecified Qualified Code(s): I50.9 - Heart failure, unspecified Code(s): I50.9 - Heart failure, unspecified Status: Acute (4) THOMAS (acute kidney injury): Code(s): N17.9 - Acute kidney failure, unspecified Status: Acute (5) Stage 3b chronic kidney disease (CKD): Code(s): N18.32 - Chronic kidney disease, stage 3b Status: Acute (6) Uncontrolled type 2 diabetes mellitus: Status: Acute DS: Summary Hospital Course Hospital Course: 61 yr old female who presented to the emergency room with complaints of left-sided breast pain that radiated to her back and dyspnea on exertion. Patient stated that the pain is off and on throughout the day and lasts approximately 15 minutes at a time. Patient states that when she sits down to relax the pain goes away. Patient states that she feels somewhat short of breath with the pain, stating it hurts to take a deep breath so that is why she feels short of breath with the pain. Patient states she has noted some dyspnea on exertion over the last few days. Patient states she used to see Dr. Bergman at [facility] for her congestive heart failure. Patient states she did have a myocardial infarction 2014 and underwent cardiac catheterization and no stents were placed at that time. Patient states that she has been taking most of her medications, but she did run out of some over a month ago and since she has had to change insurance companies and does not have a primary care at this time she has not been able to get them filled. Patient states she has been taking her insulin and some of her cardiac medications, but she is not able to tell me which medications. Patient denies any lightheadedness, dizziness, palpitations, edema, or weight gain. As already stated patient states she had a myocardial infarction 2014 and underwent cardiac catheterization with no stent placement. Patient states she does have a history of congestive heart failure, hypertension, and diabetes mellitus. Patient states she had been following at [facility] for her heart, but since she has had an insurance change she will not be able to do this. #Chest pain: -chest pain sounded atypical in nature. Patient states he has a history of myocardial infarction but had a cardiac catheterization that showed no coronary artery disease. Patient states she did follow with public safety telecommunicator at [facility] for her heart failure. -patient has had 3 negative troponin. EKG shows a normal sinus rhythm with left bundle-branch block which is no change from previous. -public safety telecommunicator consulted, she was evaluated with a TTE and CT chest to rule out aortic dissection. CT chest was negative. and the echo was negative for acute findings. TTE report from 10/21/2021: 1. Complete two-dimensional, color flow and Doppler transthoracic echocardiogram is performed. 2. Left ventricular systolic function is normal, estimated at 55-60%. 3. There is mildly increased left ventricular wall thickness. 4. Left ventricular septal wall motion is abnormal with septal motion related to bundle branch block. 5. The left ventricular diastolic function is grade I diastolic dysfunction. 6. There is mild mitral valve calcification. 7. There is trace mitral valve regurgitation. 8. T
== END 2021-10-21 17:12 | disposition home or self-care (01) ==
LOC: ANHED 16:30 → ANHIMU 17:52
PROVIDERS: Nurse Practitioner Adult Health; Admitting Provider Family Medicine; Emergency Provider Emergency Medicine; PCP Student in an Organized Health Care Education/Training Program; Visit Provider Internal Medicine
DX: R07.9 Chest pain, unspecified (principal); I20.9 Angina pectoris, unspecified; N17.9 Acute kidney failure, unspecified; I50.9 Heart failure, unspecified; N18.32 Chronic kidney disease, stage 3b; E11.22 Type 2 diabetes mellitus with diabetic chronic kidney disease; I13.0 Hypertensive heart and chronic kidney disease with heart failure and stage 1 through stage 4 chronic kidney disease, or unspecified chronic kidney disease; E78.5 Hyperlipidemia, unspecified; K21.9 Gastro-esophageal reflux disease without esophagitis; E11.65 Type 2 diabetes mellitus with hyperglycemia; R51.9 Headache, unspecified
CPT/HCPCS: 36415; 71046; 71275; 80048; 80053; 82948; 83036; 83690; 83735; 83880; 84484; 85025; 85610; 85730; 93005; 93306; 96372; 99285; A9270; G0378; J1650; J1815; J7030; J7040; Q9967

== ENCOUNTER 2022-07-05 15:37 | Outpatient (CLI) | payer OTHER, SELFPAY ==
[2022-07-05 16:00] LABS: Hematocrit 39.8 % (37.0-47.0); Mean Corpuscular HGB Conc 32.7 g/dl (32-36); Mean Corpuscular Hemoglobin 29.4 pg (26-34); Mean Platelet Volume 10.9 fl (7.4-10.4); Platelet Count Result 186 k/mm3 (150-375); Red Blood Count 4.42 M/mm3 (4.2-5.4); Red Cell Distribution Width 12.5 % (11.5-14.5); White Blood Count 4.3 K/mm3 (4.5-10.0)
[2022-07-05 16:12] LABS: Prothrombin Time 13.2 Seconds (11.1-14.7)
[2022-07-05 16:13] LABS: Partial Thromboplastin Time 28.3 SECONDS (22.3-36.8)
[2022-07-05 16:19] LABS: Anion Gap 4 mmol/L (8-16); Blood Urea Nitrogen 12 mg/dL (7-17); Calcium 8.3 mg/dL (8.4-10.2); Carbon Dioxide 31 mmol/L (22-30); Chloride 99 mmol/L (98-107); Estimated Glomerular Filt Rate > 60; Glucose 108 mg/dL (65-110); Potassium 3.7 mmol/L (3.4-5.0); Sodium 134 mmol/L (137-145)
== END 2022-07-05 15:38 | disposition home or self-care (01) ==
PROVIDERS: PCP Student in an Organized Health Care Education/Training Program; Visit Provider Specialist
DX: Z01.810 Encounter for preprocedural cardiovascular examination (principal)
CPT/HCPCS: 36415; 80048; 85027; 85610; 85730

== ENCOUNTER 2025-02-17 08:58 | Inpatient (IN) | payer OTHER, SELFPAY ==
[2025-02-17] VITALS (16 sets, daily range): BP systolic 101–168; BP diastolic 49–89; PULSE 71–110; RESP 16–20; TEMP 36.5–36.8; O2SAT 96–100; BMI 28.5
--- NOTE | 2025-02-17 | ECHO_ITS ---
Patient Info Name: Suze Munoz Age: 64 years : 1960 Gender: Female Ht: 64 in Wt: 187 lbs BSA: 1.99 m2 HR: 76 bpm BP: 168 / 88 mmHg Heart Rhythm: Sinus Rhythm Technical Quality: Fair Exam Date: 02/17/2025 3:41 PM Patient Status: I Admit Date: 02/17/2025 Exam Type: CA echo doppler w bubble study Complete two-dimensional, color flow and Doppler transthoracic echocardiogram is performed with agitated saline. Staff Referring Physician: Shefali Guevara Test Designer: Kathia Go Attending Provider: Dereje Mack Contrast/Agitated Saline Contrast/Ag. Saline: Agitated Saline Amount: 20.00 ml Existing IV Access: Yes IV Access Condition: patent with no signs of infiltration Summary 1. Left ventricular systolic function is normal, estimated at 50-55. 2. There is mildly increased left ventricular wall thickness. 3. Left ventricular septal wall motion is abnormal. 4. The left ventricular diastolic function is grade I diastolic dysfunction. 5. Intact interatrial septum visualized by agitated saline imaging. 6. There is mild tricuspid valve regurgitation. 7. No pulmonary hypertension, estimated pulmonary arterial systolic pressure is 18 mmHg. Left Ventricle Left ventricular chamber dimension is normal. Left ventricular systolic function is normal, estimated at 50-55. There is mildly increased left ventricular wall thickness. Left ventricular septal wall motion is abnormal. The left ventricular diastolic function is grade I diastolic dysfunction. Right Ventricle Right ventricular chamber dimension is normal. Right ventricular systolic function is normal. Left Atria Left atrial chamber dimension is normal. Right Atria Right atrial chamber dimension is normal. Atrial Septum Intact interatrial septum visualized by agitated saline imaging. Aortic Valve The aortic valve is trileaflet. There is no aortic valve sclerosis. There is no aortic valve stenosis. There is no aortic valve regurgitation. Pulmonic Valve The pulmonic valve is normal. There is no pulmonic valve stenosis. There is no pulmonic regurgitation. Mitral Valve The mitral valve has normal leaflets. There is no mitral valve stenosis. There is no mitral valve regurgitation. Tricuspid Valve The tricuspid valve leaflets are normal. There is no significant tricuspid valve stenosis. There is mild tricuspid valve regurgitation. No pulmonary hypertension, estimated pulmonary arterial systolic pressure is 18 mmHg. Pericardium/Pleural The pericardium appears normal. There is no pericardial effusion. Inferior Vena Cava Normal inferior vena cava with >50% collapse upon inspiration consistent with normal right atrial pressure, 5 mmHg. Aorta The aortic root size at the sinus of Valsalva is normal. The prox ascending aorta size is normal. Left Ventricular Outflow Tract Name Value Normal LVOT 2D LVOT Diameter 2.0 cm LVOT Doppler LVOT Peak Velocity 100 cm/s LVOT Peak Gradient 4 mmHg LVOT Mean Gradient 2 mmHg LVOT VTI 15 cm LVOT VTI/AV VTI Ratio 0.6 LVOT Stroke Volume 48 ml LVOT CO 3.5 l/min LVOT CI 1.8 l/min/m2 Pulmonic Valve Name Value Normal RVOT Doppler RVOT Peak Velocity 51 cm/s RVOT Peak Gradient 1 mmHg PV Doppler PV Peak Velocity 86 cm/s PV Peak Gradient 3 mmHg Mitral Valve Name Value Normal MV Diastolic Function MV E Peak Velocity 61 cm/s MV A Peak Velocity 79 cm/s MV E/A 0.8 MV Decel Time (PW) 249 ms MV Annular TDI MV E/e' (Septal) 19.1 MV E/e' (Lateral) 10.0 MV E/e' (Average) 14.5 Tricuspid Valve Name Value Normal TV Regurgitation Doppler TR Peak Velocity 182 cm/s TR Peak Gradient 13 mmHg Estimated PAP/RSVP RA Pressure 5 mmHg <=5 PA Systolic Pressure 18 mmHg <36 RV Systolic Pressure 18 mmHg <36 TV Annular TDI TV Lateral Melinda s' Velocity 8.2 cm/s >=9.5 Aorta Name Value Normal Ascending Aorta Ao Root Diameter (MM) 3.1 cm Ao Root Diam Index (MM) 1.6 cm/m2 Aortic Valve Name Value Normal AV Doppler AV Peak Velocity 158 cm/s AV Peak Gradient 10 mmHg AV Mean Gradient 5 mmHg AV VTI 26 cm AV Area (Cont Eq VTI) 1.8 cm2 >=3.0 AV Area (Cont Eq Barrett) 2.0 cm2 AV DI (Barrett) 0.63 AV Regurgitation 2D LVOT Area 3.2 cm2 Ventricles Name Value Normal LV Dimensions 2D/MM IVS Diastolic Thickness (2D) 1.0 cm 0.6-1.0 LVID Diastole (2D) 4.6 cm 3.8-5.2 LVIW Diastolic Thickness (2D) 1.0 cm 0.6-0.9 LVID Systole (2D) 3.1 cm 2.2-3.5 LVOT Diameter 2.0 cm LV Mass (2D Cubed) 154.30 g 67.00-162.00 LV Mass Index (2D Cubed) 78 g/m2 43-95 Relative Wall Thickness (2D) 0.43 <=0.42 LV Fractional Shortening/Ejection Fraction 2D/MM LV Fractional Shortening (2D) 32 % 27-45 LV EF (2D Teichholz) 60 % LV Diastolic Volume (4C MOD) 78 ml LV EF (4C MOD) 60 % LV Diastolic Volume (2C MOD) 83 ml LV EF (2C MOD) 59 % LV Diastolic Volume (BP MOD) 81 ml 46-106 LV Diastolic Volume Index (BP MOD) 41 ml/m2 29-61 LV Systolic Volume (BP MOD) 34 ml 14-42 LV Systolic Volume Index (BP MOD) 17 ml/m2 8-24 LV EF (BP MOD) 58 % 54-74 LV Diastolic Length (4C) 7.7 cm LV Systolic Length (4C) 6.5 cm LV Stroke Volume (4C MOD) 47 ml Atria Name Value Normal LA Dimensions LA Dimension (MM) 3.9 cm 2.7-3.8 LA Volume (4C A-L) 41 ml LA Volume (BP A-L) 60 ml RA Dimensions RA Area (4C) 11.4 cm2 <=18.0 Report Signatures
--- NOTE | ~2025-02-17 | MR_ITS ---
EXAMINATION: MR brain/brain stem wo/w con DATE: 02/17/2025 13:59 INDICATION: Stroke with left-sided weakness, hemianopsia and neglect TECHNIQUE: Magnetic resonance imaging (MRI) of the brain and brainstem was performed without and with 15 mL Multihance intravenous contrast. Sequences included sagittal and axial T1-weighted SE, axial diffusion-weighted FS SE, axial 3D SWAN, axial and sagittal T2-weighted FLAIR, and axial T2-weighted FSE. Postcontrast axial and coronal T1-weighted SE was obtained. Apparent diffusion coefficient (ADC) maps were created. COMPARISON: Head CT and CT angiogram dated 02/17/2025 FINDINGS: There are no areas of restricted diffusion to suggest acute infarction. No intracranial hemorrhage or abnormal intracranial mass lesion. There are a couple small regions of encephalomalacia at the right parietal occipital region with some associated gyriform and punctate susceptibility artifact consistent with chronic blood products likely secondary to a subsequent chronic hemorrhagic transformation. There are scattered areas of nonspecific increased T2-weighted signal intensity in the cerebral white matter, predominantly involving the deep and periventricular white matter. This includes a small T2 hyperintense lesion at the left parietal lobe which accounts for the suspicion for a second region of encephalomalacia on prior CT which is not evident on MRI. Additional susceptibility artifact associated with likely age-related dystrophic calcifications at the bilateral basal ganglia and cerebellar hemispheres. There are no intraparenchymal signal abnormalities seen on the other pulse sequences. The ventricles are symmetric and normal in size with normal variant cavum septum pellucidum and vergae. There are no abnormal extra-axial fluid collections. Flow voids are seen in the cerebral arteries on the T2-weighted sequences consistent with their expected patency. Mild mucosal thickening bilateral ethmoid sinuses. Visualized orbits and soft tissues are unremarkable. There are no areas of abnormal enhancement on the post contrast images. IMPRESSION: 1. No acute intracranial process or abnormally enhancing brain lesions. 2. Couple small regions of encephalomalacia in the right parotid region consistent with prior infarct with subsequent secondary hemorrhagic transformation which is chronic. 3. Multiple scattered small foci of calcific white matter T2 hyperintensity, likely sequela of chronic small vessel ischemic disease. This includes a small T2 hyperintense lesion in the posterior left parietal subcortical white matter which accounts for the decreased density on prior CT at this location which raised suspicion for acute infarct. Reviewed, dictated and finalized at location A. IMPRESSION: 1. No acute intracranial process or abnormally enhancing brain lesions. 2. Couple small regions of encephalomalacia in the right parotid region consist ent with prior infarct with subsequent secondary hemorrhagic transformation whi ch is chronic. 3. Multiple scattered small foci of calcific white matter T2 hyperintensity, li rashaun sequela of chronic small vessel ischemic disease. This includes a small T2 hyperintense lesion in the posterior left parietal subcortical white matter wh ich accounts for the decreased density on prior CT at this location which raise d suspicion for acute infarct.
--- NOTE | ~2025-02-17 | CT_ITS ---
EXAMINATION: CTA BRAIN/CAROTID DATE: 02/17/2025 09:12 INDICATION: Left-sided paralysis TECHNIQUE: Computed tomographic angiography (CTA) of the head and neck was performed with 100 mL Omnipaque-350 intravenous contrast. Multiplanar reconstructions and maximum intensity projection 3D-reconstructions of the carotid arteries and of the intracranial arteries were created by the technologist on a separate workstation. Precontrast CT of the head was also obtained. Automated exposure control and iterative reconstruction technique were employed.The dose-length product was 977.87 mGy-cm. COMPARISON: None. FINDINGS: Intracranial arteries Right vertebral artery is mildly dominant. There is mild nonhemodynamically significant atherosclerotic plaque at the right carotid siphon.. There is no hemodynamically significant stenosis in the vertebral, basilar and internal carotid arteries. Both A1 and P1 segments are patent. There are no aneurysms identified. Cerebral arterial arborization appears symmetric. No abnormally enhancing brain lesions. Carotid arteries: The aortic arch and the great vessels arising from the arch are normal in caliber with no dissection or hemodynamically significant stenosis. Normal anatomic variant bovine aortic arch with common origin of the innominate and left carotid arteries and aortic origin of the left vertebral artery. Right v ertebral artery is mildly dominant. No evident hemodynamically significant stenosis along the bilateral vertebral arteries. There is no evident atherosclerotic plaque with 0% stenosis of the right carotid bulb relative to normal distal artery lumen diameter (NASCET criteria). There is small amount of atherosclerotic plaque with 0% stenosis of the left carotid bulb relative to normal distal artery lumen diameter. Visualized portion of the upper lungs are clear. Severe cervical spondylosis. IMPRESSION: 1. 0% stenosis of the right and left carotid bulbs relative to normal distal artery lumen diameter (NASCET criteria). 2. Normal cerebral CT angiogram with no aneurysm, hemodynamically significant stenosis or thrombosis. Reviewed, dictated and finalized at location A. IMPRESSION: 1. 0% stenosis of the right and left carotid bulbs relative to normal distal ar agustín lumen diameter (NASCET criteria). 2. Normal cerebral CT angiogram with no aneurysm, hemodynamically significant s tenosis or thrombosis.
--- NOTE | ~2025-02-17 | XR_ITS ---
EXAMINATION: XR chest 1V portable 02/17/2025 09:54 INDICATION: Stroke PROCEDURE: AP portable chest COMPARISON: Comparison to multiple prior studies sequentially, with oldest reviewed study dated 12/15/2014. FINDINGS: The lungs are clear. The cardiomediastinal silhouette is within normal limits. There are no pleural effusions. There is no pneumothorax suspected. IMPRESSION: 1: NO ACUTE CARDIOPULMONARY DISEASE. Reviewed, dictated and finalized at location O.
--- NOTE | ~2025-02-17 | CT_ITS ---
EXAMINATION: CT brain wo con DATE: 02/17/2025 09:10 INDICATION: Left-sided paralysis TECHNIQUE: Computed tomography (CT) of the head was performed without intravenous contrast. Sagittal and coronal reconstructions were performed. The mA was adjusted according to patient size. Iterative reconstruction technique was employed. The dose-length product was 681.00 mGy-cm. COMPARISON: head CT dated 12/18/2019 FINDINGS: There is a new mild to moderate size region decreased attenuation with loss of meneses-white matter differentiation and without evident volume loss consistent with cytotoxic edema associated with likely acute infarct. Additional new small region of loss of meneses-white matter differentiation in the contralateral left frontal lobe also suspicious for acute infarct. No acute intracranial hemorrhage or abnormal extra axial fluid collection. There is mild scattered white matter hypoattenuation consistent with chronic small vessel ischemic disease. Ventricles are normal and symmetric. No mass/mass effect. Dystrophic calcifications at the bilateral basal ganglia and bilateral cerebellar hemispheres. Mild mucosal thickening at the bilateral maxillary sinuses. The orbits and mastoid air cells are normal. IMPRESSION: 1. Suspected acute infarcts, small to moderate-sized the right parietal occipital region and small on the left parietal lobe. Differential would include posterior reversible encephalopathy syndrome (PRES). No acute intracranial hemorrhage. Dr. Narayan discussed these findings with Dr. Guevara at 9:05 AM. Reviewed, dictated and finalized at location A. IMPRESSION: 1. Suspected acute infarcts, small to moderate-sized the right parietal occipit al region and small on the left parietal lobe. Differential would include poste rior reversible encephalopathy syndrome (PRES). No acute intracranial hemorrhag e. Dr. Narayan discussed these findings with Dr. Guevara at 9:05 AM.
--- NOTE | 2025-02-17 09:01 | ECG_ITS ---
Test Date: 2025-02-17 09:17:30 Measurements Intervals [place] Rate: 124 P: 12 MS: 229 QRS: 65 QRSD: 145 T: 206 QT: 344 QTc: 494 Interpretive Statements SINUS TACHYCARDIA WITH FIRST DEGREE AV BLOCK LEFT BUNDLE BRANCH BLOCK ABNORMAL ECG No previous ECG available for comparison Electronically Signed On 02-17-2025 09:34:27 CDT by Jono Kimbrough D.O.
[2025-02-17 09:11] LABS: Estimated Glomerular Filt Rate 41
[2025-02-17 09:40] LABS: Hematocrit 35.2 % (37.0-47.0); Hemoglobin 11.6 g/dL (12.0-15.0); Immature Granulocyte Percent A 0.2 % (0-0.5); Lymphocytes Absolute Auto 3.63 K/mm3 (0.9-3.2); Mean Corpuscular HGB Conc 33.0 g/dl (32-36); Mean Corpuscular Hemoglobin 29.9 pg (26-34); Mean Corpuscular Volume 90.7 fl (80-100); Nucleated Red Blood Cells Absolute Auto 0.000 K/mm3 (0.0-0.012); Nucleated Red Blood Cells Perc 0.0 % (0.0-0.2); Platelet Count Result 197 k/mm3 (150-375); Red Blood Count 3.88 M/mm3 (4.2-5.4); White Blood Count 8.6 K/mm3 (4.5-10.0)
--- OUTSIDE RECORDS SUMMARY | 2025-02-17 09:43 | XMS_ITS | Encounter Summary ---
Author Organization [facility] Address [address] [place] [address] Phone Care Team Providers Care Civil Drafter Name Role Phone Benitez Justice MD Primary Care Provider [phone] Mike Bergman MD Unavailable [phone] Nikky Oconnor RN Unavailable [phone] Yamini Madrigal RN Unavailable [phone] Stefan Juarez MD Unavailable [phone] Mike Bergman MD Unavailable [phone] Jennifer Medel RN Unavailable Unavailable Nikky Oconnor RN Unavailable [phone] Jennifer Medel RN Unavailable Unavailable Jennifer Medel RN Unavailable Unavailable Encounter Details Date Type Department Care Team (Late st Contact Info) Description 04/08/2021 Telephone [facility] Medicine Cardiology [address] [place] [address] Kathryn Rivera Social History Tobacco Use Types Packs/Day Years Used Date Smoking Tobacco: Never Smokeless Tobacco: Never Alcohol Use Standard Drinks/Week Comments No 0 (1 standard drink = 0.6 oz pur e alcohol) Comments No Sex and Gender Information Value Date Recorded Sex Assigned at Not on file 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 Gender Identity Not on file Sexual Orientation Not on file documented as of this encounter Plan of Treatment Not on file documented as of this encounter Visit Diagnoses Not on filedocumented in this encounter Care Teams Civil Drafter Relationship Specialty Start Date End Date Benitez Justice MD PCP - General Family Medicine 05/14/18 Mike Bergman MD Referring Physician Cardiology 05/15/19 02/20/22 Nikky Oconnor, RN [address] [address] Dental Technician Cardiology 05/15/19 Yamini Madrigal, RN [address] [address] Dental Technician Cardiology 05/15/19 Stefan Juarez MD [address] [address] Consulting Physician Cardiovascular Disease 02/21/22 Mike Bergman MD [address] [address] Referring Physician Cardiology 03/30/22 Jennifer Medel, stone drillerDental Technician Cardiology 03/30/22 07/26/23 Nikky Oconnor, RN [address] [address] Dental Technician Cardiology 03/30/22 Jennifer Medel, individual pension adviser Failure Coordinator 07/13/23 07/26/23 Jennifer Medel, individual pension adviser Failure Coordinator Transplant 07/26/23 documented as of this encounter
--- OUTSIDE RECORDS SUMMARY | 2025-02-17 09:43 | XMS_ITS | Clinical Summary ---
Author Organization [facility] Address [address] [place] [address] Care Team Providers Care Cobol Developer Name Role Phone Rob Bland Isidra DEL RIO Primary Care Provider + Source Comments [facility],non-owned Affiliates and Associated Physician Practices is amultiple site organization consisting of ambulatory clinics and hospital sitesin [place], [place], [place] and [place]. This disclosure is being madepursuant to the Care Everywhere program and may not contain all information available regarding this patient. Last updated 18.[facility] Allergies Active Allergy Reactions Criticality Noted Date Comments Codeine Urticaria High 04/14/2020 Contrast-Gadolinium Agents For Mri Rash Medium 04/12/2024 Guaifenesin Rash Medium 10/20/2021 Guanfacine Urticaria High 04/14/2020 Hydrocodone Rash Medium 11/27/2023 Morphine Nausea and/or Vomiting,Unknown Low 11/15/2016 Penicillins Anaphylaxis High 11/27/2023 Medications * Be aware that medications may not be up to date on this document. Alwaysverify current medications with the patient. hydrALAZINE (Apresoline) 25 MG tablet Take 1 (one) tablet by mouth 3 times daily 90 tablet 3 4 Active Additional Information Patient taking differently:25 mg Oral 3 TIMES DAILY,Taking BID, Reported on 11/01/2024 acetaminophen (Tylenol) 500 MG tablet Take 1 (one) tablet by mouth every 4 hours as needed for Pain or Headache Maximum allowable Acetaminophen amount = 4 Grams (4000 mg) / 24 hours. 60 tablet 4 Active Additional Information Patient not taking.Reported on 11/01/2024 atorvastatin (Lipitor) 40 MG tablet Take 1 (one) tablet by mouth once daily 4 Active carvedilol (Coreg) 12.5 MG tablet Take 1 (one) tablet by mouth 2 times daily Active losartan (Cozaar) 100 MG tablet Take 1 (one) tablet by mouth once daily 4 Active potassium chloride ER (Klor-Con M) 10 MEQ tablet Take 1 (one) tablet by mouth once daily Active furosemide (Lasix) 40 MG tablet Take 1 (one) tablet by mouth once daily Active insulin glargine (Lantus/Semgle e) 100 units/mL pen Inject 26 (twenty six) Units subcutaneously every 24 hours Active lacosamide (Vimpat) 100 MG tabletIndicati ons:Seizure (HCC) Take 1 (one) tablet by mouth 2 times daily 60 tablet 3 4 Active cyclobenzaprin e (Flexeril) 5 MG tablet TAKE 1-2 TABLETS BY MOUTH 3 TIMES DAILY NEEDED FOR MUSCLE SPASMS. 4 Active levETIRAcetam (Keppra) 500 MG tablet Take 2 (two) tablets by mouth 2 times daily 60 tablet 2 04/20/2024 12:21 PM CDT 4 Active Active Problems Problem Noted Date Diagnosed Date Status epilepticus 04/12/2024 Hypoxia 04/12/2024 Acute respiratory failure with hypoxia and hyper capnia 04/12/2024 CKD (chronic kidney disease) 04/12/2024 Coronary artery disease 04/12/2024 LBBB (left bundle branch block) 04/12/2024 Altered mental status, unspe cified altered mental status type 11/27/2023 Weakness 11/27/2023 Seizures 11/27/2023 Primary hypertension 11/27/2023 DM2 (diabetes mellitus, type 2) 11/27/2023 Hypertrophic scar 09/18/2012 Immunizations Immunization Administration Dates Next Due INFLUENZA VACCINE, TRIV. (FL UZONE; FLULAVAL; FLUARIX; AFLURIA TRIVALENT; 6MO+), 0.5 ML (IIV3) 04/14/2024 Social History Tobacco Use Types Packs/Day Years Used Date Smoking Tobacco: Never Passive Smoke Exposure: Past Smokeless Tobacco: Never Alcohol Use Standard Drinks/Week Comments Yes 0 (1 standard drink = 0.6 oz pur e alcohol) AUDIT-C Answer Date Recorded Q1: How often do you have a drink containing alcohol? Patient unable to answer 04/13/2024 Q2: How many drinks containi ng alcohol do you have on a typical day when you are drinking? Patient unable to answer Q3: How often do you have si x or more drinks on one occasion? Patient unable to answer 04/13/2024 Overall Financial Resource Strain (CARDIA) Answe r Date Recorded How hard is it for you to pa y for the very basics like food, housing, medical care, and heating? Not hard at all 04/17/2024 PHQ-2 Answer Date Recorded Patient Health Questionnaire-2 Score 0 12/03/2023 [facility] Occupat ional Health - Occupational Stress Questionnaire Answer Date Recorded Do you feel stress - tense, restless, nervous, or anxious, or unable to sleep at night because your mind is troubled all the time - these days? Not at all 04/17/2024 Hunger Vital Sign Answer Date Recorded Within the past 12 months, y ou worried that your food would run out before you got the money to buy more. Never true 04/17/20 24 Within the past 12 months, t he food you bought just didn't last and you didn't have money to get more. Never true 04/17/2024 PRAPARE - Transportation Answer Date Re corded In the past 12 months, has l ack of transportation kept you from medical appointments or from getting medications? No 03/27 In the past 12 months, has l ack of transportation kept you from meetings, work, or from getting things needed for daily living? No 04/17/2024 Housing Stability Vital Sign Answer Osvaldo e Recorded In the last 12 months, was t here a time when you were not able to pay the mortgage or rent on time? No 11/27/2023 In the last 12 months, how many places have you lived? 1 11/27/2023 In the last 12 months, was t here a time when you did not have a steady place to sleep or slept in a usp (including now)? No 11/27/2023 Housing Stability Vital Sign Answer Osvaldo e Recorded In the last 12 months, was t here a time when you were not able to pay the mortgage or rent on time? No 04/17/2024 In the past 12 months, how m any times have you moved where you were living? 0 04/17/2024 At any time in the past 12 m [facility], were you homeless or living in a usp (including now)? 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 Gender Identity Not on file Sexual Orientation Not on file Last Filed Vital Signs Vital Sign Reading Time Taken Comments Blood Pressure 134/77 11/01/2024 10:24 AM CDT Pulse 65 11/01/2024 10:24 AM CDT Temperature 36.4 C (97.6 F) 04/20/2024 8:09 AM CDT Respiratory Rate 18 04/19/2024 7:58 PM CDT Oxygen Saturation 98% 11/01/2024 10:24 AM CDT Inhaled Oxygen Concentration 40% 04/15/2024 8 :03 AM CDT Weight 80.7 kg (178 lb) 11/01/2024 10:24 AM CDT Height 165.1 cm (5' 5) 11/01/2024 10:24 AM CDT Body Mass Index 29.62 11/01/2024 10:24 AM CDT Plan of Treatment Health Maintenance Due Date Last Done Comments COLOGUARD (AGES 45-75) - COLON CA SCREENING 1959 COLON MONITORING 1959 COLONOSCOPY - COLON CA SCREENING 1959 CT COLONOGRAPHY - COLON CA SCREENING 1959 Colorectal Cancer Screening 1959 FIT - COLON CA SCREENING 1959 FLEX SIG - COLON CA SCREENING 1959 HIV SCREENING 1974 DTAP/TDAP/TD VACCINES (1 - Tdap) 1978 PNEUMOCOCCAL VACCINE 50+ (1 of 2 - PCV) 1978 PAP SMEAR 1980 ZOSTER VACCINE (1 of 2) 2009 Respiratory Syncytial Virus (RSV) Vaccine Pt: or over 60 yrs (1 - Risk 60-74 years 1-dose series) 2019 DIABETES RETINOPATHY SCREENING 11/27/2023 DIABETES-FOOT EXAM WITH MONOFILAMENT 11/27/2023 COVID-19 VACCINE ( - season) 2024 02/23/2021, 02/02/2021 DEPRESSION SCREENING 06/26/2024 11/27/2023 DIABETES - URINE PROTEIN SCREENING 06/26/2024 12/07/2023, 02/07/2022 MEDICARE AWV CALENDAR YEAR 2024 INFLUENZA VACCINE (#1) 2025 , 04/11/2019, 05/23/2018, Additional history exists DIABETES-HGB A1C 03/13/2025 09/10/2024, , 04/10/2024, Additional history exists DIABETES-SERUM CREATININE 04/20/20252023, 04/18/2024, 04/17/2024, Additional history exists MAMMOGRAM 09/17/2026 09/17/2024, 08/25, 11/16/2022, Additional history exists HEPATITIS C SCREENING Completed 02/07/2022 BONE DENSITY TESTING Completed 09/17/2024 HEPATITIS B VACCINE Aged Out No longe r eligible based on patient's age to complete this topic HIB VACCINE Aged Out No longer eligi ble based on patient's age to complete this topic HPV VACCINE Aged Out No longer eligi ble based on patient's age to complete this topic MENINGOCOCCAL (Group B) VACCINE SHARED DECISION-MAKING Aged Out No longer eligible based on patient's age to complete this topic MENINGOCOCCAL GROUPS A/C/Y/W VACCINE Aged Out No longer eligible based on patient's age to complete this topic Procedures Procedure Name Priority Date/Time Associated Diagnosis Comments COMPREHENSIVE METABOLIC PANEL Routine 04/20/2024 3:31 AM CDT HEMOGLOBIN A1C Routine 04/12/2024 11:08 PM CDT from Last 3 Months or Most Recently Relevant to Health Maintenance Results * (ABNORMAL) COMPREHENSIVE METABOLIC PANEL (04/20/2024 3:31 AM CDT) Pathologist [facility] BUN 13 7 - 26 mg/dL 04/20/2024 5:04 AM [facility] Creatinine 1.20(H) 0.56 - 0.96 mg/dL 04/20/2024 5:04 AM [facility] Sodium 137 136 - 145 mmol/L 04/20/2024 5:04 AM [facility] Potassium 4.0 3.5 - 4.5 mmol/L 04/20/2024 5:04 AM [facility] Chloride 105 98 - 107 mmol/L 04/20/2024 5:04 AM [facility] CO2 21(L) 22 - 29 mmol/L 04/20/2024 5:04 AM [facility] Glucose 159(H) 70 - 99 mg/dL 04/20/2024 5:04 AM [facility] Calcium 9.3 8.4 - 10.2 mg/dL 04/20/2024 5:04 AM [facility] Protein Total 7.4 6.0 - 8.3 g/dL 04/20/2024 5:04 AM [facility] Albumin 3.3(L) 3.4 - 5.0 g/dL 04/20/2024 5:04 AM [facility] Bilirubin Total 0.4 0.2 - 1.2 mg/dL 04/20/2024 5:04 AM [facility] Alkaline Phosphatase 47 40 - 150 U/L 04/20/2024 5:04 AM [facility] ALT 32 5 - 55 U/L 04/20/2024 5:04 AM [facility] AST 24 5 - 34 U/L 04/20/2024 5:04 AM [facility] Anion Gap 11 6 - 16 04/20/2024 5:04 AM [facility] BUN/Creatinine Ratio 11 7 - 23 04/20/2024 5:04 AM [facility] Osmolality Calculated 287 275 - 295 mOsm/kg 04/20/2024 5:04 AM [facility] Albumin/Globulin Ratio 0.8(L) 1.1 - 2.3 04/20/2024 5:04 AM [facility] eGFR by CKD-EPI 51(L) >=90 mL/min/1.7 3 m2 04/20/2024 5:04 AM [facility] Blood BLOOD SPECIMEN / Unknown Lab Venipuncture / Unknown 04/20/2024 3:31 AM CDT 04/20/2024 4:49 AM CDT us Herb Gray MD LAB - CHEMISTRY ORDERAB LES Final Result Performing Organization Address City/[facility]/ZIP Co de Phone Number [facility] [address] [place] [id number], [place] [phone] * (ABNORMAL) HEMOGLOBIN A1C (04/12/2024 11:08 PM CDT) Hemoglobin A1c 7.3(H) <=5.6 % 04/13/2024 10:23 AM [facility] Estimated Average Glucose 163 mg/dL 04/13/2024 10:23 AM [facility] Comment: HbA1c Interpretation: Normal : < 5.7% Pre-diabetes: 5.7-6.4% Diabetes: Equal to or greater than 6.5% Test results diagnostic of diabetes should be repeated for confirmation. Treatment target values recommended by ADA and other clinical organizations should be used to evaluate metabolic control in patients. Reference: [place] Diabetes Association, Standards of Care in Diabetes -2020 In patients 70 years and older consider HbA1c target range of 7.0-7.5% (Reference: Kaden Crespo, et al. JAMDA. 2012) The Sebia assay for the measurement of HbA1c is a National Glycohemoglobin Standardization Program (NGSP) certified method. Blood BLOOD SPECIMEN / Unknown 04/12/2024 11:08 PM CDT 04/13/2024 5:02 AM CDT us Mariano Murillo MD LAB - CHEMISTRY ORDERABLES Final Result Performing Organization Address City/[facility]/ZIP Co de Phone Number [facility] [address] [place] [id number], [place] [phone] from Last 3 Months or Most Recently Relevant to Health Maintenance Insurance [employer] MEDICARE ADV D-SNP & C-SNP [place]ICAID - [place] Advance Directives Documents on File Type Date Recorded Patient Roller Turner Expl anation Adv Directive/Living Will/POA 04/22/2024 10:23 AM Adv Directive/Living Will/POA 04/18/2024 1:22 PM VB * Full Code (Latest Code Status on File) Date Activated Date Inactivated Comments 04/12/2024 6:42 PM 04/20/2024 2:14 PM * Full Code Date Activated Date Inactivated Comments 11/27/2023 1:27 PM 12/04/2023 4:22 PM Care Teams Cobol Developer Relationship Specialty Start Date End Date Rob Bland DO [address] [place] [id number] PCP - General Family Medicine Geriatric Medicine 12/14/23
--- OUTSIDE RECORDS SUMMARY | 2025-02-17 09:43 | XMS_ITS | Clinical Summary ---
Author Organization [facility] [address] [facility] Address [address] [place] [address] Care Team Providers Care Protection Officer Name Role Phone Benitez Justice MD Primary Care Provider + [phone] Allergies Active Allergy Reactions Criticality Noted Date Comments Codeine Hives High 04/14/2020 Guanfacine Hcl Hives High 04/14/2020 Morphine Nausea and Vomiting Low 04/14/2020 Penicillins Rash Low 04/14/2020 Medications amLODIPine (NORVASC) 10 mg tablet Take 10 mg by mouth daily. Active aspirin (DAVID CHEWABLE) 81 mg Tablet, Chewable Take 81 mg by mouth daily. Active atorvastatin (LIPITOR) 20 mg tablet Take 20 mg by mouth daily. Active canagliflozin (INVOKANA) 100 mg Take by mouth daily before breakfast. Active carvediloL (COREG) 25 mg tablet Take 25 mg by mouth 2 times daily with meals. Active furosemide (LASIX) 40 mg tablet Take 40 mg by mouth daily. Active glipiZIDE (GLUCOTROL) 10 mg tablet Take 10 mg by mouth daily with breakfast. Active hydrALAZINE (APRESOLINE) 25 mg tablet Take 25 mg by mouth 4 times daily. Active insulin glargine (Lantus Solostar U-100 Insulin) 100 unit/mL pen syringe Inject by subcutaneous injection. Active losartan (COZAAR) 100 mg tablet Take 100 mg by mouth daily. Active omeprazole (PriLOSEC) 20 mg Capsule, Delayed Release(E.C.) Take 20 mg by mouth daily. Active mv,Ca,min/iron/ FA/guarana/caff (ONE-A-DAY WOMEN'S ACTIVE ORAL) Take by mouth. Activ e SITagliptin (JANUVIA) 100 mg Tablet Take 100 mg by mouth daily with breakfast. Active spironolactone (ALDACTONE) 25 mg tablet Take 25 mg by mouth daily. Active Active Problems Problem Noted Date Diagnosed Date Cervical spondylosis without myelopathy 04/14/20 Family History Relation Name Status Comments Father Alive Mother Alive Social History Tobacco Use Types Packs/Day Years Used Date Smoking Tobacco: Never Alcohol Use Standard Drinks/Week Comments Yes 0 (1 standard drink = 0.6 oz pur e alcohol) Comments Unknown Sex and Gender Information Value Date Recorded Sex Assigned at Not on file Legal Sex Female 4:14 PM CDT Gender Identity Not on file Sexual Orientation Not on file Last Filed Vital Signs Vital Sign Reading Time Taken Comments Blood Pressure - - Pulse - - Temperature 37 C (98.6 F) 04/14/2020 2:01 PM CDT Respiratory Rate - - Oxygen Saturation - - Inhaled Oxygen Concentration - - Weight 78 kg (172 lb) 04/14/2020 2:01 PM CDT Height 165.1 cm (5' 5) 04/14/2020 2:01 PM CDT Body Mass Index 28.62 04/14/2020 2:01 PM CDT Plan of Treatment Health Maintenance Due Date Last Done Comments DIABETES ANNUAL FOOT EXAM 1977 DIABETES ANNUAL RETINAL EXAM 1977 DIABETES MICROALBUMIN ANNUAL SCREEN 1977 LDL CHOLESTEROL ANNUAL 1977 DTAP/TDAP/TD VACCINES (1 - Tdap) 1978 PNEUMOCOCCAL VACCINE 50+ YEA RS (1 of 2 - PCV) 1978 BREAST CANCER SCREENING 1999 COLORECTAL SCREENING 2004 Colorectal Cancer Screening 2004 FIT-DNA Q 3 years 2004 FIT/FOBT Q 1 year 2004 Flex Sig/CT Colonography Q 5 years 2004 ZOSTER VACCINE (1 of 2) 2009 RSV VACCINE (60+ or ) (1 - Risk 60-74 years 1-dose series) 2019 OSTEOPOROSIS SCREENING 2024 DIABETES HBA1C Q 6 MONTHS 10/12/20242023, 04/12/2024, 11/28/2023 INFLUENZA VACCINE (#1) 2025 04/14/20[address] [place] [address] [place] [address] Care Teams Protection Officer Relationship Specialty Start Date End Date Benitez Justice MD [address] [place] [address] PCP - General Family Practice 02/05/20
--- OUTSIDE RECORDS SUMMARY | 2025-02-17 09:43 | XMS_ITS | Encounter Summary ---
Author Organization [facility] Address [address] [place] [address] Care Team Providers Care Senior Restaurant Manager Name Role Phone Benitez Justice MD Primary Care Provider [phone] Mike Bergman MD Unavailable [phone] Nikky Oconnor RN Unavailable +[phone] Yamini Madrigal RN Unavailable [phone] Stefan Juarez MD Unavailable [phone] Mike Bergman MD Unavailable [phone] Jennifer Medel RN Unavailable Unavailable Nikky Oconnor RN Unavailable +[phone] Jennifer Medel RN Unavailable Unavailable Jennifer Medel RN Unavailable Unavailable Reason for Visit * Reason Onset Date Comments Heart Failure Referral 05/03/2019 Encounter Details Date Type Department Care Team (Late st Contact Info) Description 05/15/2019 Telephone [facility] Transplant Heart [address] [phone] [place] [address] Jaqueline Lima Heart Failure Referral Social History Tobacco Use Types Packs/Day Years Used Date Smoking Tobacco: Never Smokeless Tobacco: Never Alcohol Use Standard Drinks/Week Comments No 0 (1 standard drink = 0.6 oz pur e alcohol) Comments No Sex and Gender Information Value Date Recorded Sex Assigned at Not on file 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 Gender Identity Not on file Sexual Orientation Not on file documented as of this encounter Plan of Treatment Not on file documented as of this encounter Visit Diagnoses Not on filedocumented in this encounter Care Teams Senior Restaurant Manager Relationship Specialty Start Date End Date Benitez Justice MD PCP - General Family Medicine 05/14/18 Mike Bergman MD Referring Physician Cardiology 05/15/19 02/20/22 Nikky Oconnor, RN [address] [address] Tower Supervisor Cardiology 05/15/19 Yamini Madrigal, RN [address] [address] Tower Supervisor Cardiology 05/15/19 Stefan Juarez MD [address] [address] Consulting Physician Cardiovascular Disease 02/21/22 Mike Bergman MD [address] [address] Referring Physician Cardiology 03/30/22 Jennifer Medel, broomcorn press feederTower Supervisor Cardiology 03/30/22 07/26/23 Nikky Oconnor, RN [address] [address] Tower Supervisor Cardiology 03/30/22 Jennifer Medel, data compiler Failure Coordinator 07/13/23 07/26/23 Jennifer Medel, data compiler Failure Coordinator Transplant 07/26/23 documented as of this encounter
--- OUTSIDE RECORDS SUMMARY | 2025-02-17 09:43 | XMS_ITS | Encounter Summary ---
Author Organization [facility] Address [address] [place] [address] Care Team Providers Care Business Info Consultant Name Role Phone Rob Bland Primary Care Provider + Reason for Visit * Reason Onset Date Comments Appointment 04/01/2024 Encounter Details Date Type Department Care Team (Late st Contact Info) Description 04/01/2024 Telephone [facility] - Centralized Scheduling [address] [place] [address] Nadeem Espinoza MD [address] [place] [address] Appointment Social History Tobacco Use Types Packs/Day Years Used Date Smoking Tobacco: Never Passive Smoke Exposure: Past Smokeless Tobacco: Never Alcohol Use Standard Drinks/Week Comments Yes 0 (1 standard drink = 0.6 oz pur e alcohol) AUDIT-C Answer Date Recorded Q1: How often do you have a drink containing alcohol? Never 01/11/2024 Q2: How many drinks containi ng alcohol do you have on a typical day when you are drinking? Patient does not drink Q3: How often do you have si x or more drinks on one occasion? Never 01/11/2024 Overall Financial Resource Strain (CARDIA) Answe r Date Recorded How hard is it for you to pa y for the very basics like food, housing, medical care, and heating? Not hard at all 11/27/2023 PHQ-2 Answer Date Recorded Patient Health Questionnaire-2 Score 0 12/03/2023 [facility] of Occupat ional [facility] - Occupational Stress Questionnaire Answer Date Recorded Do you feel stress - tense, restless, nervous, or anxious, or unable to sleep at night because your mind is troubled all the time - these days? Only a little 11/27/2023 Hunger Vital Sign Answer Date Recorded Within the past 12 months, y ou worried that your food would run out before you got the money to buy more. Patient declined Within the past 12 months, t he food you bought just didn't last and you didn't have money to get more. Patient declined 08/2023 PRAPARE - Transportation Answer Date Re corded In the past 12 months, has l ack of transportation kept you from medical appointments or from getting medications? No 08/2023 In the past 12 months, has l ack of transportation kept you from meetings, work, or from getting things needed for daily living? No 11/27/2023 Housing Stability Vital Sign Answer [...] place to sleep or slept in a senior living (including now)? 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 Answer Date of Assessment Author No 01/11/2024 11:35 AM Krysta Cai i, RN * Is person blind or have serious difficulty seeing? Answer Date of Assessment Author No 01/11/2024 11:35 AM Krysta Cai i RN * Does person have serious difficulty walking/climbing stairs? Answer Date of Assessment Author No 01/11/2024 11:35 AM Krysta Cai i, RN * Does person have difficulty dressing/bathing? Answer Date of Assessment Author No 01/11/2024 11:35 AM [facility] Krysta Earl i, RN * Does person have difficulty doing errands alone? Answer Date of Assessment Author No 01/11/2024 11:35 AM [facility] Krysta Earl i, RN documented as of this encounter Mental Status * Does person have difficulty concentrating/remembering/making decisions? Answer Entry Date Author No 01/11/2024 11:35 AM [facility] Krysta Earl i, RN documented in this encounter Miscellaneous Notes * Telephone Encounter - Simon Tay - 04/01/2024 3:44 PM CDT Patient is wanting to reschedule her appointment for some time in April. documented in this encounter Plan of Treatment Not on file documented as of this encounter Visit Diagnoses Not on filedocumented in this encounter Care Teams Business Info Consultant Relationship Specialty Start Date End Date Rob Bland DO [address] [place] [address] PCP - General Family Medicine Geriatric Medicine 12/14/23 documented as of this encounter
--- OUTSIDE RECORDS SUMMARY | 2025-02-17 09:43 | XMS_ITS | Clinical Summary ---
Author Organization [facility] [place] [address] Address [address] [place] [address] Care Team Providers Care Foiling Machine Operator Name Role Phone Benitez Justice MD Primary Care Provider [phone] Stefan Juarez MD Unavailable [phone] Mike Bergman MD Unavailable [phone] Jennifer Medel RN Unavailable Unavailable Allergies Active Allergy Reactions Criticality Noted Date Comments Codeine Hives Medium Guanfacine Hcl Hives Medium Morphine Unknown 11/15/2016 Penicillins Unknown 11/15/2016 Medications aspirin 81 mg chewable tablet chew 1 tablet by oral route every day 0 0 5 Active spironolactone (ALDACTONE) 25 mg tablet Take 1 tablet (25 mg total) by mouth daily. 90 tablet 3 7 Active SITagliptin (JANUVIA) 100 mg tabletIndication s:type 2 diabetes mellitus Take 100 mg by mouth daily Active glipiZIDE XL (GLUCOTROL XL) 10 mg 24 hr tabletIndication s:type 2 diabetes mellitus Take 10 mg by mouth 2 (two) times a day Active atorvastatin (LIPITOR) 20 mg tablet Take 20 mg by mouth daily. Active mv,Ca,min/iron/F A/guarana/caff (ONE-A-DAY WOMEN'S ACTIVE ORAL) Take by mouth. Activ e canagliflozin (INVOKANA) 100 mg tabletIndication s:type 2 diabetes mellitus 100 mg daily Active omeprazole (PriLOSEC) 20 mg capsule Take 20 mg by mouth daily Active LANTUS SOLOSTAR U-100 INSULIN 100 unit/mL (3 mL) insulin pen 25 Units daily 9 Active losartan (COZAAR) 100 mg tablet Take 1 tablet (100 mg total) by mouth daily 30 tablet 11 9 Active amLODIPine (NORVASC) 10 mg tablet Take 1 tablet (10 mg total) by mouth daily 30 tablet 11 0 Active hydrALAZINE (APRESOLINE) 100 mg tabletIndication s:hypertension Take 1 tablet (100 mg total) by mouth 3 (three) times a day 270 tablet 3 0 Active Additional Information Patient taking differently:100 mg oral2 times daily, Indications: hypertension, Reported on 10/01/2020 cholecalciferol, vitamin D3, (VITAMIN D3 ORAL) Take by mouth daily Active carvediloL (COREG) 25 mg tabletIndication s:Essential hypertension Take 1 tablet (25 mg total) by mouth 2 (two) times a day with meals 60 tablet 11 0 Active metoprolol XL (TOPROL-XL) 100 mg 24 hr tablet Take 100 mg by mouth daily Active furosemide (LASIX) 40 mg tablet TAKE 1 AND 1/2 TABLETS EVERY DAY (DOSE INCREASE) 135 tablet 1 2 Active Hospital, Clinic, or Other Facility Administered Medication Ordered Dose Route Frequency Start Date End Date Status perflutren protein-a (OPTISON) 3 mL in sodium chloride 0.9% 8 mL syringe 1 - 8 mL IV Once in imaging 10/01/2020 Active Active Problems Problem Noted Date Diagnosed Date Syncope and collapse 04/09/2020 Chronic systolic congestive heart failure 2019 Hypertension 08/29/2019 Other chest pain 05/30/2019 Palpitations 05/30/2019 Shortness of breath 05/30/2019 Keloid scar 12/31/2017 Assessment & Plan (01/21/2019 9:09 AM CDT): Patient underwent intralesional Kenalog injection of the left ear lobule. Patient tolerated procedure well. Patient will follow back up in one month for one more repeat injection. Assessment & Plan (12/21/2018 9:23 AM CDT): Patient has a history of a previous excision of a keloid lesion of the left ear lobule. Overall patient has done very well. She started to experience some nodularity discomfort in the left ear around the scar. It does appear like there is a possible re-formation a keloid. Kenalog intralesional injection was performed today. Patient will follow back up in one month for repeat injection. 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 No signs of recurrent keloid formation. No intralesional injection was performed today. Patient is instructed to perform frequent self examinations and returned to my office should she perceive any development of a recurrent keloid lesion. Patient can otherwise follow back up with me as needed. Assessment & Plan (04/09/2018 7:52 AM CDT): Intralesional steroid injection was performed today of the left ear. Patient tolerated well. Patient is doing exceptionally well. No signs of recurrent keloid formation. Assessment & Plan (03/11/2018 8:09 PM CDT): Patient was scheduled today to undergo intralesional Kenalog injection. I am going to delay this for couple weeks. Patient is currently experiencing an active dental infection. Patient will be placed on antibiotic and instructed to follow up with dental care. Patient will follow back up in a couple weeks for re-attempt at intralesional Kenalog injection. Assessment & Plan (02/27/2018 12:54 PM CDT): Sutures removed today. Operative site looks excellent. Patient will follow back up in 1 month for postsurgical intralesional Kenalog injection to help prevent recurrence. Assessment & Plan (02/23/2018 7:26 AM CDT): Symptomatic keloid scar was excised today from the left ear. Complex closure was performed. Patient tolerated the procedure well. Wound care instructions were discussed. Patient will follow back up in 1 week for suture removal. Assessment & Plan (12/31/2017 12:40 PM CDT): Patient demonstrates a recurrent painful keloid scar along the left ear. It had been previously a excised on 2 separate occasions by an outside physician for it only to return. Patient denies being treated with any intralesional steroid injection, nitric oxide or other treatment modalities. Patient states it is painful. Patient stated that a keloid was removed from right ear but did not return. Patient will require a left partial auriculectomy with reconstruction followed by intralesional steroid injection. Patient was told that she will require returning back to my office on a monthly basis for intralesional steroid injection for the 1st 4-6 months to help prevent recurrence. All questions were answered to what appeared to be patient's understanding and satisfaction. After the procedure was explained in full the potential risk, complications, benefits and alternatives patient would like to proceed. Patient will be scheduled in a timely fashion. Surgical History Surgery Date Site/Laterality Comments TOTAL ABDOMINAL HYSTERECTOMY Hysterectomy, total Medical History Medical History Date Comments Hypertension Hypertension Hx Other Medical LBBB High cholesterol Family History Medical History Relation Name Comments Heart disease Other Family history of Cardiovascular disease; 01/02/2015 -Sister Heart disease Sister Cardiovascular disease; Relation Name Status Comments Other Sister Social History Tobacco Use Types Packs/Day Years Used Date Smoking Tobacco: Never Smokeless Tobacco: Never Alcohol Use Standard Drinks/Week Comments No 0 (1 standard drink = 0.6 oz pur e alcohol) Personal Safety Answer Date Recorded Getting School Help Needed Not on file 07/13 Comments No Sex and Gender Information Value Date Recorded Sex Assigned at Not on file Legal Sex Female 3:43 AM 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 Pulse 88 04/08/2021 9:38 AM CDT Temperature 36.6 C (97.8 F) 10/01/2020 8:27 AM CDT Respiratory Rate 18 01/21/2019 8:56 AM CDT Oxygen Saturation 98% 04/08/2021 9:3 8 AM CDT Inhaled Oxygen Concentration - - Weight 83.9 kg (185 lb) 04/08/2021 9:38 AM CDT Height 165.1 cm (5' 5) 04/08/2021 9:38 AM CDT Body Mass Index 30.79 04/08/2021 9:38 AM CDT Plan of Treatment Not on file Insurance [employer] CHOICE MEDICARE PPO HUMANA GOLD [facility] MMAI HUMANA CHOICE MEDICARE PPO IDPA Care Teams Foiling Machine Operator Relationship Specialty Start Date End Date Benitez Justice MD PCP - General Family Medicine 05/14/18 Stefan Juarez MD Consulting Physician Cardiovascular Disease 02/21/22 Mike Bergman MD Referring Physician Cardiology 03/30/22 Jennifer Medel, senior network engineer Failure Coordinator Transplant 07/26/23
[2025-02-17 09:52] LABS: Alanine Aminotransferase 51 U/L (6-35); Albumin Level 3.9 g/dL (3.5-5.1); Alkaline Phosphatase 53 U/L (38-126); Anion Gap 8 mmol/L (4-12); Aspartate Amino Transferase 39 U/L (14-36); Bilirubin,Total 0.9 mg/dL (0.2-1.3); Blood Urea Nitrogen 19 mg/dL (7-17); Calcium 8.2 mg/dL (8.4-10.2); Carbon Dioxide 26 mmol/L (22-30); Chloride 100 mmol/L (98-107); Estimated Glomerular Filt Rate 54; Glucose 251 mg/dL (65-110); Potassium 4.4 mmol/L (3.4-5.0); Sodium 134 mmol/L (137-145); Total Protein 7.5 g/dL (6.3-8.2)
[2025-02-17 10:02] LABS: Troponin I 0.013 ng/mL (0.000-0.034)
--- NOTE | 2025-02-17 10:03 | ED.NEUROSD ---
HPI - Neuro Symptoms/Deficit General Chief Complaint: Suspected CVA Stated Complaint: CVA Time Seen by Provider: 02/17/25 09:00 History of Present Illness HPI Narrative: 64F h/o CVA, sz on zeke, presents after waking up this morning around 730, fell out of bed because she cannot move her left side. Last known well 10:00 p.m. when she went to sleep last night. Related Data Home Medications ?Medication ?Instructions ?Recorded ?Confirmed ?Last Taken ?Type aspirin 81 mg tablet,delayed 81 mg PO DAILY 12/18/19 02/17/25 02/16/25 History release (Aspir-) furosemide 40 mg tablet 40 mg PO DAILY 12/18/19 02/17/25 02/16/25 History insulin glargine 100 unit/mL (3 26 unit subcut DAILY 12/18/19 02/17/25 02/16/25 History mL) subcutaneous pen (Lantus Solostar U-100 Insulin) sitagliptin phosphate 100 mg tablet 100 mg PO DAILY 12/18/19 02/17/25 02/16/25 History blood sugar diagnostic (True 10/20/21 02/17/25 Unknown History Metrix Glucose Test Strip) acetaminophen 500 mg tablet 500 mg PO Q4H PRN fever or pain 02/17/25 02/17/25 Unknown History albuterol sulfate 90 mcg/actuation 2 inh inhalation Q4H PRN shortness 02/17/25 02/17/25 Unknown History aerosol inhaler (Ventolin HFA) of breath or wheezing atorvastatin 40 mg tablet 40 mg PO DAILY 02/17/25 02/17/25 02/16/25 History carvedilol 12.5 mg tablet 12.5 mg PO Q12H 02/17/25 02/17/25 02/16/25 History fluticasone 250 mcg-salmeterol 50 1 inh inhalation Q12H 02/17/25 02/17/25 02/16/25 History mcg/dose blistr powdr for inhalation hydralazine 25 mg tablet 25 mg PO Q12H 02/17/25 02/17/25 02/16/25 History lacosamide 100 mg tablet 100 mg PO Q12H 02/17/25 02/17/25 02/16/25 History levetiracetam 1,000 mg tablet 1,000 mg PO Q12H 02/17/25 02/17/25 02/16/25 History levetiracetam 250 mg tablet 250 mg PO Q12H 02/17/25 02/17/25 02/16/25 History losartan 100 mg tablet 100 mg PO DAILY 02/17/25 02/17/25 02/16/25 History potassium chloride 10 mEq 10 meq PO DAILY 02/17/25 02/17/25 02/16/25 History tablet,extended release (Klor-Con) Allergies Allergy/AdvReac Type Severity Reaction Status Date / Time codeine Allergy Mild RASH, Verified 02/17/25 11:36 ITCHING guaifenesin Allergy Mild RASH, Verified 02/17/25 11:36 ITCHING oxycodone Allergy Mild Rash Verified 02/17/25 11:36 Penicillins Allergy Unknown rash Verified 02/17/25 11:36 morphine AdvReac Mild Nausea and Verified 02/17/25 11:36 Vomiting PMFSH Past Medical History Medical History (Updated 02/17/25 @ 10:52 by Angelito Ferreira MD) Seizure disorder Stage 3b chronic kidney disease (CKD) DM type 2 (diabetes mellitus, type 2) insulin dependent GERD (gastroesophageal reflux disease) Bronchitis Asthma HLD (hyperlipidemia) HTN (hypertension) CHF (congestive heart failure) H/O cardiomyopathy, EF 25 2014, 60% 2020. History of angina Myocardial infarction [place] per pt. No documentation of [place]. Cath 2015 showed no CAD. 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 Smoking status: Never smoker Alcohol intake: never Substance use: never Lack of Transportation: No Lack of Food: Never True Current Housing: I Have Housing Concerned About Future Housing: No Difficulty Paying Gas/Electric Bills: No Difficulty Paying for Meds: No Currently Unemployed: No Education: High School Diploma/GED Difficulty w/ Childcare or Family Care: No Gender identity (if verbalized by the patient): Female Spiritual care concerns: No Exam Narrative: EXAMINATION OF ORGAN SYSTEMS/BODY AREAS: Constitutional: Vital signs per nursing GENERAL: Appears confused HEAD: Normal with no signs of head trauma. EYES: EOMI, conjunctiva normal, missing left-sided field of vision ENT: Hearing grossly intact LUNGS: Nonlabored breathing. HEART: [Regular rate and rhythm] ABD: [Soft], [nontender to palpation] EXT: No deformity SKIN: [No rashes or lesions.] NEURO: [Alert. Some difficulty with speech. Left-sided flaccid paralysis, left-sided hemineglect.] PSYCH: Normal affect Course Vital Signs Vital signs: Vital Signs Temperature 97.9 F 02/17/25 08:55 Pulse Rate 110 H 02/17/25 08:55 Respiratory Rate 18 02/17/25 08:55 Blood Pressure 121/79 02/17/25 08:55 Pulse Oximetry 100 02/17/25 08:55 Oxygen Delivery Room Air 02/17/25 08:55 Temperature 97.7 F 02/17/25 11:33 Pulse Rate 96 02/17/25 12:00 Respiratory Rate 20 02/17/25 12:00 Blood Pressure 168/88 H 02/17/25 11:33 Pulse Oximetry 98 02/17/25 12:00 Oxygen Delivery Room Air 02/17/25 12:00 MDM - Neuro Symptoms/Deficit MDM Narrative Medical decision making narrative: Patient presents here with stroke-like symptoms, last known well when she went to bed last night, on exam she has obvious left-sided weakness and having a glass and hemianopsia, also with some slight aphasia. NIH Stroke Scale is 11. Stroke workup immediately initiated, she is unfortunately not tPA candidate with last known well more than 5 hours ago, CTA head/neck without LV 0, CT concerning for acute infarct. Discussed with neurologist on-call here who did come to bedside to examine patient, recommend starting aspirin and Plavix and atorvastatin, with MRI as patient not interventional candidate. I did update the patient and family at bedside regarding the plan for admission and discussed with hospitalist. Lab Data 02/17/25 09:33 02/17/25 09:33 Labs: Lab Results 02/17/25 02/17/25 Range/Units 09:07 09:33 WBC 8.6 (4.5-10.0) K/mm3 RBC 3.88 L (4.2-5.4) M/mm3 Hgb 11.6 L (12.0-15.0) g/dL Hct 35.2 L (37.0-47.0) % MCV 90.7 (80-100) fl MCH 29.9 (26-34) pg MCHC 33.0 (32-36) g/dl RDW 13.0 (11.5-14.5) % Plt Count 197 (150-375) k/mm3 MPV 11.2 H (7.4-10.4) fl Immature Gran % (Auto) 0.2 (0-0.5) % Neut % (Auto) 50.0 (45.5-73.1) % Lymph % (Auto) 42.1 (18.3-44.2) % [place] % (Auto) 6.7 (2.6-8.5) % Eos % (Auto) 0.5 (0-4.4) % Baso % (Auto) 0.5 (0.2-1.2) % Lymph # (Auto) 3.63 H (0.9-3.2) K/mm3 [place] # (Auto) 0.6 (0.1-0.6) K/mm3 Eos # (Auto) 0.0 (0-0.3) K/mm3 Baso # (Auto) 0.0 (0.0-0.1) K/mm3 Abs Immat Gran (auto) 0.02 (0.00-0.031) K/mm3 Absolute Neuts (auto) 4.3 (1.3-6.7) K/mm3 Absolute Nucleated RBC 0.000 (0.0-0.012) K/mm3 Nucleated RBC % 0.0 (0.0-0.2) % Sodium 134 L (137-145) mmol/L Potassium 4.4 (3.4-5.0) mmol/L Chloride 100 (98-107) mmol/L Carbon Dioxide 26 (22-30) mmol/L Anion Gap 8 (4-12) mmol/L BUN 19 H (7-17) mg/dL Creatinine 1.30 H 1.02 H (0.7-1.2) mg/dL Estim Creat Clear Calc Not Reportable Not Reportable Estimated GFR 41 L 54 L (59 - ) Glucose 251 H (65-110) mg/dL Calcium 8.2 L (8.4-10.2) mg/dL Total Bilirubin 0.9 (0.2-1.3) mg/dL AST 39 H (14-36) U/L ALT 51 H (6-35) U/L Alkaline Phosphatase 53 (38-126) U/L Troponin I 0.013 (0.000-0.034) ng/mL Total Protein 7.5 (6.3-8.2) g/dL Albumin 3.9 (3.5-5.1) g/dL Critical Care Time Critical Care Time Critical Care Time: Yes Total Critical Care Time: 45 Discharge Plan Discharge Clinical Impression: Matthew-neglect of left side, Acute cerebrovascular accident (CVA), Hemianopsia, Left-sided weakness Patient Disposition: Still a Patient Condition: Serious
[2025-02-17] MEDS: CLOPIDOGREL BISULFATE 75 MG TABLET 150 MG PO (10:16)
[2025-02-17] MEDS: ASPIRIN 81 MG CHEWABLE TABLET PO (10:17)
[2025-02-17] MEDS: levETIRAcetam 1500MG/NACL100ML 1,500 MG/100 ML BAG 600 MG IVPB (10:17)
--- NOTE | 2025-02-17 10:45 | P.CONNEU_ITS ---
Assessment and Plan Assessment and plan (1) Matthew-neglect of left side: Code(s): R41.4 - Neurologic neglect syndrome Status: Acute Assessment and Plan: The patient also has left homonymous matthew anopsia however it could also be the neck let of the left hemifield as part of the other features of matthew-neglect of the left side of the body. This will require follow-up. (2) Seizure disorder: Code(s): G40.909 - Epilepsy, unspecified, not intractable, without status epilepticus Status: Acute (3) Acute cerebrovascular accident (CVA): Code(s): I63.9 - Cerebral infarction, unspecified Status: Acute (4) DM type 2 (diabetes mellitus, type 2): Code(s): E11.9 - Type 2 diabetes mellitus without complications Status: Acute (5) Stage 3b chronic kidney disease (CKD): Code(s): N18.32 - Chronic kidney disease, stage 3b Status: Acute Plan since the patient carries diagnosis of seizure disorder and has been on anticonvulsants started [facility] in November according to the patient whether she has a new stroke or a post ictal or Sandeep phenomenon require some follow-up. She does have left homonymous hemianopsia and matthew neglect of the left side of the body and sensory loss in the left side of the body. This required some clinical follow-up. MRI of the brain and EEG are recommended I suggested to start on Plavix and aspirin and also atorvastatin should be increased from 20-40 mg a day. Should follow-up her lipid profile and clinical progress. Echocardiogram will be helpful. Consult date: 02/17/25 HPI: Suze Munoz is a 64 year old female with history of seizure disorder presented to the emergency room with the a spell seizure and flaccidity on the left side of the body. The patient states that she got up in the morning and sat on the edge of the bed and then she lost consciousness and had a seizure. Her and Reba care of her. She does have history of seizures for which she was taken to [facility] earlier this year in November and was started on Keppra. She has been taking Keppra 1250 mg twice a day. She states that she basically lives alone but her boyfriend Varun usually there also. She was taken to the CT scan of the brain and CT angiogram head and neck which did not show any significant abnormalities. By the time she came back she was moving her left side but there are some other finding which should be highlighted below. She also has history of headaches. Previous records reflect she has history of diabetes mellitus chronic kidney disease hyperlipidemia and hypertension and congestive cardiac failure and history of myocardial infarction and migraine. Review of Systems 2 Review of Systems: All systems reviewed & are unremarkable except as noted in HPI and below [facility] Past Medical History Medical History (Updated 02/17/25 @ 10:52 by Angelito Ferreira MD) Seizure disorder Stage 3b chronic kidney disease (CKD) DM type 2 (diabetes mellitus, type 2) insulin dependent GERD (gastroesophageal reflux disease) Bronchitis Asthma HLD (hyperlipidemia) HTN (hypertension) CHF (congestive heart failure) H/O cardiomyopathy, EF 25 2014, 60% 2020. History of angina Myocardial infarction [place] per pt. No documentation of [place]. Cath 2015 showed no CAD. 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 Smoking status: Never smoker Alcohol intake: never Substance use: never Gender identity (if verbalized by the patient): Female Spiritual care concerns: No Meds Home Medications and Allergies Home Medications ?Medication ?Instructions ?Recorded ?Confirmed ?Type amlodipine 10 mg tablet 10 mg PO HS 12/18/19 2 History aspirin 81 mg tablet,delayed 81 mg PO HS 12/18/1909/25 History release (Aspir-) atorvastatin 20 mg tablet 20 mg PO HS 12/18/19 2 History furosemide 40 mg tablet 40 mg PO HS 12/18/19 2 History glipizide 10 mg tablet, extended 10 mg PO BIDWM 10/20/21 History release 24 hr hydralazine 100 mg tablet 200 mg PO HS 12/18/19 History insulin glargine 100 unit/mL (3 25 unit subcut DAILY 0 12/18/19 10/20/21 History mL) subcutaneous pen (Lantus Solostar U-100 Insulin) metoprolol succinate 100 mg 100 mg PO HS 12/18/19/01/14 History tablet,extended release 24 hr omeprazole 20 mg tablet,delayed 20 mg PO HS 12/18/19 0 10/20/21 History release sitagliptin phosphate 100 mg tablet 100 mg PO HS 12/1710/20/21 History blood sugar diagnostic (True 10/20/21 10/20/21 Histor y Metrix Glucose Test Strip) canagliflozin 100 mg tablet 100 mg PO DAILY 10/20/21 0 10/20/21 History (Invokana) carvedilol 25 mg tablet 25 mg PO HS 10/20/21 2 History ergocalciferol (vitamin D2) 1,250 1,250 mcg PO WEEKLY 10/20/21 10/20/21 History mcg (50,000 unit) capsule (Vitamin D2) isosorbide dinitrate 10 mg tablet 10 mg PO HS 10/20/21 10/20/21 History losartan 25 mg tablet 25 mg PO DAILY 10/20/2109/25 History ggcwgdqc-rmn-ucqzh ac 400 1 tablet PO DAILY 10/20/21 0 10/20/21 History mcg-calcium carb 500 mg-vit K1 20 mcg tablet spironolactone 25 mg tablet 25 mg PO HS 10/20/2110/20 History Allergies Allergy/AdvReac Type Severity Reaction Status Date / Time codeine Allergy Mild RASH, Verified 10/20/21 14:35 ITCHING guaifenesin Allergy Mild RASH, Verified 10/20/21 14:35 ITCHING oxycodone Allergy Mild Rash Verified 10/20/21 14:35 Penicillins Allergy Unknown rash Verified 10/20/21 14:35 morphine AdvReac Mild Nausea and Verified 10/20/21 17:48 Vomiting Vital Signs Vital Signs - 24 hr 02/17/25 08:55 02/17/25 09:20 02/17/25 09:45 Temperature 97.9 F Pulse Rate 110 H 110 H 108 H Respiratory Rate 18 16 18 Blood Pressure 121/79 121/79 143/75 H Pulse Oximetry 100 96 100 Oxygen Delivery Room Air 02/17/25 10:00 02/17/25 10:20 Temperature Pulse Rate 101 H 97 Respiratory Rate 16 16 Blood Pressure 138/76 142/89 H Pulse Oximetry 100 100 Oxygen Delivery Exam 2 Narrative: The patient is alert and oriented to self place and person however she appears to neglext left hemifield of vision and left side of the body. Attention head and neck shows no evidence of external trauma. No nuchal rigidity. Pupils were equal reactive light. Visual stuart show left homonymous hemianopsia. There is slight flattening of the left nasolabial fold compared to the right side. There is no tongue deviation. Face sensation as well as sensory testing of the left side of the body reviewed that she has either hemisensory loss or see neck let us the left side of the body. He is unable to identify my hand against her hand when shown from the left side. She is able to move the left upper and lower limb but the left upper limb is slightly weaker than the right upper limb. The legs appear to fairly symmetric at this time. Deep tendon reflexes did not show any significant asymmetry. No involuntary movements were seen. Results Labs 02/17/25 09:33 02/17/25 09:33 Labs: Short CBC 02/17/25 Range/Units 09:33 WBC 8.6 (4.5-10.0) K/mm3 Hgb 11.6 L (12.0-15.0) g/dL Hct 35.2 L (37.0-47.0) % Plt Count 197 (150-375) k/mm3 BMP 02/17/25 02/17/25 09:07 09:33 Sodium 134 L Potassium 4.4 Chloride 100 Carbon Dioxide 26 BUN 19 H Creatinine 1.30 H 1.02 H Glucose 251 H Calcium 8.2 L Cardiac Enzymes 02/17/25 Range/Units 09:33 Troponin I 0.013 (0.000-0.034) ng/mL Liver Function 02/17/25 Range/Units 09:33 Total Bilirubin 0.9 (0.2-1.3) mg/dL AST 39 H (14-36) U/L ALT 51 H (6-35) U/L Alkaline Phosphatase 53 (38-126) U/L Albumin 3.9 (3.5-5.1) g/dL Imaging Attestation: I personally reviewed and interpreted this imaging study as follows: ( CT scan of the head and CT angiogram of the head and neck) My impression: no large vessel occlusion. CT scan of brain did not show any significant acute a new findings. Radiologist's impression: same
--- NOTE | 2025-02-17 11:35 | ADMGEN ---
This patient, Suze Munoz, was admitted to IMU Room 232-01. Patient/family oriented to hospital policies and general routines including ID bracelet, bed and alarms, visiting hours, pain management, procedures, bathroom and other care routines, personal items, smoking policy, room service/diet, and visiting hours. Information on how to activate the Rapid Response Team has been discussed. Patient/Family are encouraged to report perceived risks to care and to ask questions if they do not understand what they are told or what they should do.
[2025-02-17 11:57] LABS: INR 1.1; Prothrombin Time 13.9 Seconds (11.1-14.7)
[2025-02-17 11:58] LABS: Partial Thromboplastin Time 27.8 Seconds (22.3-36.8)
--- NOTE | 2025-02-17 13:24 | PCNEURO ---
Entered room around 13:00 to complete EEG. MRI showed up to take her for testing. Returning in 30 minutes or when nurse calls back to complete after.
--- NOTE | 2025-02-17 13:40 | PCSTNOTE ---
Attempted BSE but pt was not in room. Per community living coach (Brenda) pt is getting an MRI then an EEG and is not expected to be back for at least 90 minutes.
[2025-02-17] MEDS: ACETAMINOPHEN 325 MG TABLET 650 MG PO ×2 (14:15→20:38)
[2025-02-17] MEDS: INSULIN GLARGINE (*BKC) 100 UNITS/ML 26 UNITS SUB-Q (14:15)
[2025-02-17] MEDS: ATORVASTATIN 40 MG TABLET PO (14:16)
[2025-02-17] MEDS: LACOSAMIDE (*CRX) 100 MG TABLET PO ×2 (14:16→20:39)
[2025-02-17] MEDS: LOSARTAN POTASSIUM 100 MG TABLET PO (14:16)
--- NOTE | 2025-02-17 14:20 | PCOTNOTE ---
Attempted to see pt for OT evaluation however pt being taken down for MRI on first attempt and on second attempt, pt getting set-up for EEG test. Will continue to follow as see as able.
--- NOTE | 2025-02-17 15:43 | PCNEURO ---
EEG and paperwork COMPLETED
--- NOTE | 2025-02-17 16:30 | PC.NURSE ---
This RN updated Dr. Nichole regarding pt's test results and condition. New order to downgrade pt to med/tele but to leave pt q4h neuro checks.
--- NOTE | 2025-02-17 17:36 | PM.IMHP ---
H&P: HPI History of Present Illness Date/Time: 02/17/25 17:36 Chief Complaint: Altered mental status, weakness Narrative: Suze Munoz is a 64 year old female with past medical history of seizure disorder,, insulin-dependent type 2 diabetes, hypertension, dyslipidemia, CKD and CHF who presents for multiple seizure disorder and weakness on the right side. She reports that she has multiple breakthrough seizures over the years. This this morning shows workup with migraine the left side and on she did not remember after that. Her daughter was at the bedside with her good friend of the patient, they say that she the patient had multiple seizure-1 at home and 3 in the ambulance. She sees a neurologist, and takes Keppra 1250 mg b.i.d. and Vimpat 100 mg b.i.d. and she follows a neurologist in the regular manner. CT head and CT angio head and neck was unremarkable. MRI brain shows no acute abnormalities. In the ED, blood sugar was high 251. The rest of the lab was unremarkable. CBC was unremarkable. Patient was admitted to step-down unit for Neurology check. After the MRI brain unrevealing result, patient was transferred to medical floor with this new role check 6 times a day. [facility] Past Medical History Medical History (Updated 02/17/25 @ 10:52 by Angelito Ferreira MD) Seizure disorder Stage 3b chronic kidney disease (CKD) DM type 2 (diabetes mellitus, type 2) insulin dependent GERD (gastroesophageal reflux disease) Bronchitis Asthma HLD (hyperlipidemia) HTN (hypertension) CHF (congestive heart failure) H/O cardiomyopathy, EF 25 2014, 60% 2020. History of angina Myocardial infarction MS per pt. No documentation of MS. Cath 2015 showed no CAD. 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 Smoking status: Never smoker Alcohol intake: never Substance use: never Lack of Transportation: No Lack of Food: Never True Current Housing: I Have Housing Concerned About Future Housing: No Difficulty Paying Gas/Electric Bills: No Difficulty Paying for Meds: No Currently Unemployed: No Education: High School Diploma/GED Difficulty w/ Childcare or Family Care: No Gender identity (if verbalized by the patient): Female Spiritual care concerns: No Meds Home Medications and Allergies Home Medications ?Medication ?Instructions ?Recorded ?Confirmed ?Type aspirin 81 mg tablet,delayed 81 mg PO DAILY 12/18/19 02/17/25 History release (Aspir-) furosemide 40 mg tablet 40 mg PO DAILY 12/18/19 02/17/25 History insulin glargine 100 unit/mL (3 26 unit subcut DAILY 12/18/19 02/17/25 History mL) subcutaneous pen (Lantus Solostar U-100 Insulin) sitagliptin phosphate 100 mg tablet 100 mg PO DAILY 12/18/19 02/17/25 History blood sugar diagnostic (True 10/20/21 02/17/25 History Metrix Glucose Test Strip) acetaminophen 500 mg tablet 500 mg PO Q4H PRN fever or pain 02/17/25 02/17/25 History albuterol sulfate 90 mcg/actuation 2 inh inhalation Q4H PRN shortness 02/17/25 02/17/25 History aerosol inhaler (Ventolin HFA) of breath or wheezing atorvastatin 40 mg tablet 40 mg PO DAILY 02/17/25 02/17/25 History carvedilol 12.5 mg tablet 12.5 mg PO Q12H 02/17/25 02/17/25 History fluticasone 250 mcg-salmeterol 50 1 inh inhalation Q12H 02/17/25 02/17/25 History mcg/dose blistr powdr for inhalation hydralazine 25 mg tablet 25 mg PO Q12H 02/17/25 02/17/25 History lacosamide 100 mg tablet 100 mg PO Q12H 02/17/25 02/17/25 History levetiracetam 1,000 mg tablet 1,000 mg PO Q12H 02/17/25 02/17/25 History levetiracetam 250 mg tablet 250 mg PO Q12H 02/17/25 02/17/25 History losartan 100 mg tablet 100 mg PO DAILY 02/17/25 02/17/25 History potassium chloride 10 mEq 10 meq PO DAILY 02/17/25 02/17/25 History tablet,extended release (Klor-Con) Allergies Allergy/AdvReac Type Severity Reaction Status Date / Time codeine Allergy Mild RASH, Verified 02/17/25 11:36 ITCHING guaifenesin Allergy Mild RASH, Verified 02/17/25 11:36 ITCHING oxycodone Allergy Mild Rash Verified 02/17/25 11:36 Penicillins Allergy Unknown rash Verified 02/17/25 11:36 morphine AdvReac Mild Nausea and Verified 02/17/25 11:36 Vomiting Vital Signs Vital Signs - 24 hr 02/17/25 08:55 02/17/25 09:20 02/17/25 09:45 Temperature 36.6 C Pulse Rate 110 H 110 H 108 H Respiratory Rate 18 16 18 Blood Pressure 121/79 121/79 143/75 H Pulse Oximetry 100 96 100 Oxygen Delivery Room Air 02/17/25 10:00 02/17/25 10:20 02/17/25 11:33 Temperature 36.5 C Pulse Rate 101 H 97 96 Respiratory Rate 16 16 20 Blood Pressure 138/76 142/89 H 168/88 H Pulse Oximetry 100 100 98 Oxygen Delivery 02/17/25 12:00 02/17/25 12:00 02/17/25 12:51 Temperature Pulse Rate 96 93 Respiratory Rate 20 Blood Pressure Pulse Oximetry 98 Oxygen Delivery Room Air Room Air 02/17/25 14:00 02/17/25 14:16 02/17/25 16:00 Temperature Pulse Rate 93 83 76 Respiratory Rate Blood Pressure Pulse Oximetry Oxygen Delivery 02/17/25 16:28 Temperature 36.8 C Pulse Rate 71 Respiratory Rate 18 Blood Pressure 112/65 Pulse Oximetry 99 Oxygen Delivery Exam Narrative: APPEARANCE: Obese, cut on the lip from fall. No acute distress, nontoxic, joking with her best friend EYES: EOMI HEENT: Normocephalic, atraumatic, OMM RESPIRATORY: No respiratory distress Clear to auscultation bilaterally with no rhonchi wheezing or rales. CARDIOVASCULAR: RRR, S1 and S2 without murmurs rubs or gallops. ABDOMINAL: Soft, nontender, nondistended, no rebound or guarding MSK: 4/5 motor strength on the right upper extremity. 5/5 motor strength on the rest of her lower and upper extremity NEURO: Awake and alert. Following commands, speech normal, no focal deficits SKIN:: Warm, dry. No rashes lesions or abrasions PSYCHIATRIC: Normal affect/mood H&P: Results Labs Labs: Short CBC 02/17/25 Range/Units 09:33 WBC 8.6 (4.5-10.0) K/mm3 Hgb 11.6 L (12.0-15.0) g/dL Hct 35.2 L (37.0-47.0) % Plt Count 197 (150-375) k/mm3 BMP 02/17/25 02/17/25 09:07 09:33 Sodium 134 L Potassium 4.4 Chloride 100 Carbon Dioxide 26 BUN 19 H Creatinine 1.30 H 1.02 H Glucose 251 H Calcium 8.2 L Cardiac Enzymes 02/17/25 Range/Units 09:33 Troponin I 0.013 (0.000-0.034) ng/mL Liver Function 02/17/25 Range/Units 09:33 Total Bilirubin 0.9 (0.2-1.3) mg/dL AST 39 H (14-36) U/L ALT 51 H (6-35) U/L Alkaline Phosphatase 53 (38-126) U/L Albumin 3.9 (3.5-5.1) g/dL Assessment and Plan Assessment and plan (1) Seizure disorder: Code(s): G40.909 - Epilepsy, unspecified, not intractable, without status epilepticus Status: Acute (2) Hemianopsia: Code(s): H53.47 - Heteronymous bilateral field defects Status: Acute (3) Left-sided weakness: Code(s): R53.1 - Weakness Status: Acute (4) Matthew-neglect of left side: Code(s): R41.4 - Neurologic neglect syndrome Status: Acute (5) Acute cerebrovascular accident (CVA): Code(s): I63.9 - Cerebral infarction, unspecified Status: Acute (6) Uncontrolled type 2 diabetes mellitus: Status: Acute (7) THOMAS (acute kidney injury): Code(s): N17.9 - Acute kidney failure, unspecified Status: Acute (8) H/O CHF: Code(s): Z86.79 - Personal history of other diseases of the circulatory system Status: Acute (9) Stage 3b chronic kidney disease (CKD): Code(s): N18.32 - Chronic kidney disease, stage 3b Status: Acute (10) Congestive heart failure (CHF): Qualifiers: Heart failure chronicity: unspecified Heart failure type: unspecified Qualified Code(s): I50.9 - Heart failure, unspecified Code(s): I50.9 - Heart failure, unspecified Status: Acute (11) DM type 2 (diabetes mellitus, type 2): Code(s): E11.9 - Type 2 diabetes mellitus without complications Status: Acute (12) Uncontrolled hypertension: Code(s): I10 - Essential (primary) hypertension Status: Acute Plan 1. Weakness Likely secondary to seizure-Sandeep paralysis/acute CVA-less likely because a imaging study shows no acute intracranial abnormality Continue aspirin/Plavix Continue atorvastatin Continue neuro check q.4 Continue telemetry Follow-up echo and EEG 2. Insulin-dependent type 2 diabetes Lantus 26 continue Lantus 26 units daily POCT, SSI, hypoglycemia protocol will add jardiance 3. Seizure disorder Neurology consulted, appreciate rec Keppra increased from 1250 mg BID to 1500 mg BID Continue Vimpat 100 mg BID Follow up with EEG 4. Congestive heart failure/hypertension Continue carvedilol 12.5 b.i.d. Continue losartan 100 mg daily Continue hydralazine 25 mg 5. Dyslipidemia Continue atorvastatin 6. Asthma Continue Advair
--- NOTE | 2025-02-17 18:26 | PC.NURSE ---
On 02/17/25, the POULTRY GRADER, [Junior Mandujano ], provided care and completed [facility] documentation on this patient. I have reviewed the POULTRY GRADER's documentation and agree with the findings.
[2025-02-17] MEDS: FLUTICASONE/SALMETEROL 115-21 MCG INHALER 1 PUFF 2 PUFF INHALATION (20:40)
[2025-02-18] VITALS (14 sets, daily range): BP systolic 101–154; BP diastolic 48–88; PULSE 63–78; RESP 12–20; TEMP 36.4–37.2; O2SAT 97–99
[2025-02-18] MEDS: ACETAMINOPHEN 325 MG TABLET 650 MG PO (05:06)
[2025-02-18] MEDS: FLUTICASONE/SALMETEROL 115-21 MCG INHALER 1 PUFF 2 PUFF INHALATION ×2 (07:35→20:25)
--- NOTE | 2025-02-18 08:18 | PCSTNOTE ---
Please refer to the Bedside Swallow Evaluation in the EMR. Please note, silent aspiration cannot be ruled out at bedside. The patient is a 64 year old female admitted with onset of CVA. Orders received from the physician to evaluate swallow function at bedside. The patient was positioned upright in bed and assessed with her morning meal to include (thin via straw, soft, and solid textures.) Oral Stage: Timely oral preparation and transit observed for all consistencies. Pharyngeal Stage: Patient was observed to have timely swallow initiation with good laryngeal elevation and no noted CSA across all consistencies. Recommend : Regular diet and thin liquid. No further speech services indicated at this time. Thank you for the consult.
[2025-02-18] MEDS: ATORVASTATIN 40 MG TABLET PO (08:52)
[2025-02-18] MEDS: ASPIRIN 81 MG ENTERIC TABLET PO (08:52)
[2025-02-18] MEDS: INSULIN GLARGINE (*BKC) 100 UNITS/ML 26 UNITS SUB-Q (08:52)
[2025-02-18] MEDS: CLOPIDOGREL BISULFATE 75 MG TABLET PO (08:52)
[2025-02-18] MEDS: LOSARTAN POTASSIUM 100 MG TABLET PO (08:52)
[2025-02-18] MEDS: EMPAGLIFLOZIN 10 MG TABLET PO (08:52)
[2025-02-18] MEDS: LACOSAMIDE (*CRX) 100 MG TABLET PO ×2 (08:52→20:13)
--- NOTE | 2025-02-18 08:56 | PM.IMPN ---
Progress Note: A&P Assessment and Plan (1) Seizure disorder: Code(s): G40.909 - Epilepsy, unspecified, not intractable, without status epilepticus Status: Acute (2) Hemianopsia: Code(s): H53.47 - Heteronymous bilateral field defects Status: Acute (3) Left-sided weakness: Code(s): R53.1 - Weakness Status: Acute (4) Matthew-neglect of left side: Code(s): R41.4 - Neurologic neglect syndrome Status: Acute (5) Acute cerebrovascular accident (CVA): Code(s): I63.9 - Cerebral infarction, unspecified Status: Acute (6) Uncontrolled type 2 diabetes mellitus: Status: Acute (7) THOMAS (acute kidney injury): Code(s): N17.9 - Acute kidney failure, unspecified Status: Acute (8) H/O CHF: Code(s): Z86.79 - Personal history of other diseases of the circulatory system Status: Acute (9) Stage 3b chronic kidney disease (CKD): Code(s): N18.32 - Chronic kidney disease, stage 3b Status: Acute (10) Congestive heart failure (CHF): Qualifiers: Heart failure chronicity: unspecified Heart failure type: unspecified Qualified Code(s): I50.9 - Heart failure, unspecified Code(s): I50.9 - Heart failure, unspecified Status: Acute (11) DM type 2 (diabetes mellitus, type 2): Code(s): E11.9 - Type 2 diabetes mellitus without complications Status: Acute (12) Uncontrolled hypertension: Code(s): I10 - Essential (primary) hypertension Status: Acute Plan 1. Weakness Likely secondary to seizure-Sandeep paralysis/acute CVA-less likely because a imaging study shows no acute intracranial abnormality Continue aspirin/Plavix Continue atorvastatin Continue neuro check q.4 Continue telemetry Follow-up echo and EEG 2. Insulin-dependent type 2 diabetes Lantus 26 continue Lantus 26 units daily POCT, SSI, hypoglycemia protocol will add jardiance 3. Seizure disorder Neurology consulted, appreciate rec Keppra increased from 1250 mg BID to 1500 mg BID Continue Vimpat 100 mg BID Follow up with EEG 4. Congestive heart failure/hypertension Continue carvedilol 12.5 b.i.d. Continue losartan 100 mg daily Continue hydralazine 25 mg 5. Dyslipidemia Continue atorvastatin 6. Asthma Continue Advair Subjective Date/time seen: 02/18/25 08:56 Interval history: Patient reports she is not feeling great and want to be discharged tomorrow. Pending EEG results. Review of Systems Review of Systems: All systems reviewed & are unremarkable except as noted in HPI and below Exam Narrative: APPEARANCE: Obese, cut on the lip from fall. No acute distress, nontoxic, joking with her best friend EYES: EOMI HEENT: Normocephalic, atraumatic, OMM RESPIRATORY: No respiratory distress Clear to auscultation bilaterally with no rhonchi wheezing or rales. CARDIOVASCULAR: RRR, S1 and S2 without murmurs rubs or gallops. ABDOMINAL: Soft, nontender, nondistended, no rebound or guarding MSK: 4/5 motor strength on the right upper extremity. 5/5 motor strength on the rest of her lower and upper extremity NEURO: Awake and alert. Following commands, speech normal, no focal deficits SKIN:: Warm, dry. No rashes lesions or abrasions PSYCHIATRIC: Normal affect/mood Objective Data Vital Signs Vital Signs: Vital Signs - 24 hr 02/17/25 09:20 02/17/25 09:45 02/17/25 10:00 Temperature Pulse Rate 110 H 108 H 101 H Respiratory Rate 16 18 16 Blood Pressure 121/79 143/75 H 138/76 Pulse Oximetry 96 100 100 Oxygen Delivery Fraction of Inspired Oxygen 02/17/25 10:20 02/17/25 11:33 02/17/25 12:00 Temperature 97.7 F Pulse Rate 97 96 96 Respiratory Rate 16 20 20 Blood Pressure 142/89 H 168/88 H Pulse Oximetry 100 98 98 Oxygen Delivery Room Air Fraction of Inspired Oxygen 02/17/25 12:00 02/17/25 12:51 02/17/25 14:00 Temperature Pulse Rate 93 93 Respiratory Rate Blood Pressure Pulse Oximetry Oxygen Delivery Room Air Fraction of Inspired Oxygen 02/17/25 14:16 02/17/25 16:00 02/17/25 16:28 Temperature 98.3 F Pulse Rate 83 76 71 Respiratory Rate 18 Blood Pressure 112/65 Pulse Oximetry 99 Oxygen Delivery Fraction of Inspired Oxygen 02/17/25 18:00 02/17/25 20:00 02/17/25 20:36 Temperature Pulse Rate 76 80 80 Respiratory Rate Blood Pressure Pulse Oximetry Oxygen Delivery Fraction of Inspired Oxygen 02/17/25 20:40 02/17/25 20:40 02/17/25 20:45 Temperature Pulse Rate 77 77 Respiratory Rate 20 20 Blood Pressure 101/49 L Pulse Oximetry 97 Oxygen Delivery Room Air Fraction of Inspired Oxygen 21 02/18/25 00:00 02/18/25 00:00 02/18/25 04:00 Temperature 98.4 F Pulse Rate 76 74 67 Respiratory Rate 17 Blood Pressure 138/76 Pulse Oximetry 98 Oxygen Delivery Fraction of Inspired Oxygen 02/18/25 07:36 02/18/25 07:36 02/18/25 07:37 Temperature 97.6 F Pulse Rate 63 63 77 Respiratory Rate 20 20 12 Blood Pressure 154/88 H Pulse Oximetry 98 97 Oxygen Delivery Room Air Fraction of Inspired Oxygen Intake/Output Intake/Output: Intake & Output 02/15/25 02/16/25 02/17/25 02/18/25 23:59 23:59 23:59 23:59 Intake Total 250 540 Balance 250 540 Meds/Results Medications: Active Medications Generic Name Dose Route Start Last Admin Trade Name Freq PRN Reason Stop Dose Admin Acetaminophen 650 mg 02/17/25 14:10 02/18/25 05:06 Acetaminophen 325 Mg Tablet PO 650 mg Q4H PRN Administration Mild Pain (1-3) or Fever Albuterol 2 puff 02/17/25 12:35 Albuterol Sulfate (*Sp) Aerosol 1 Puff INHALATION Q4HRT PRN Shortness Of Breath Or Wheezing Aspirin 81 mg 02/18/25 09:00 Aspirin 81 Mg Enteric Tablet PO DAILY COUNT INCLUDES THE [facility] Atorvastatin Calcium 40 mg 02/17/25 12:00 02/17/25 14:16 Atorvastatin 40 Mg Tablet PO 40 mg DAILY SAVANNAH Administration Atorvastatin Calcium 40 mg 02/18/25 09:00 Atorvastatin 40 Mg Tablet PO DAILY COUNT INCLUDES THE [facility] Carvedilol 12.5 mg 02/17/25 12:35 02/17/25 20:36 Carvedilol 12.5 Mg Tablet PO 12.5 mg Q12HR SAVANNAH Administration Clopidogrel Bisulfate 75 mg 02/18/25 09:00 Clopidogrel Bisulfate 75 Mg Tablet PO QAM COUNT INCLUDES THE [facility] Empagliflozin 10 mg 02/17/25 09:00 02/17/25 19:53 Empagliflozin 10 Mg Tablet PO Not Given DAILY COUNT INCLUDES THE [facility] Hydralazine HCl 25 mg 02/17/25 21:00 02/17/25 20:58 Hydralazine Hcl 25 Mg Tablet PO Not Given Q12HR SAVANNAH Insulin Glargine 26 units 02/17/25 12:45 02/17/25 14:15 Insulin Glargine (*Bkc) 100 Units/Ml SUB-Q 26 units DAILY SAVANNAH Administration Lacosamide 100 mg 02/17/25 12:45 02/17/25 20:39 Lacosamide (*Crx) 100 Mg Tablet PO 100 mg Q12HR SAVANNAH Administration Levetiracetam 1,500 mg 02/17/25 21:00 02/17/25 20:37 Levetiracetam 500 Mg Tablet PO 1,500 mg Q12HR SAVANNAH Administration Losartan Potassium 100 mg 02/17/25 12:45 02/17/25 14:16 Losartan Potassium 100 Mg Tablet PO 100 mg DAILY SAVANNAH Administration Perflutren Lipid Microsphere 0 ml 02/17/25 11:26 Perflutren Lipid Microspheres 1.5 Ml Vial Diluted To 10 Ml Total Volume IV PUSH 02/20/25 11:27 ONCE PRN adequate visualization Protocol Fluticasone/Salmeterol 2 puff 02/17/25 20:00 02/18/25 07:35 Fluticasone/Salmeterol 115-21 Mcg Inhaler 1 Puff INHALATION 2 puff Q12HRT SAVANNAH Administration Sitagliptin Phosphate 100 mg 02/17/25 12:45 02/17/25 14:16 Sitagliptin Phosphate 100 Mg Tablet PO 100 mg DAILY SAVANNAH Administration Radiology Results: ITS Impressions Head CT 02/17/25 09:11 IMPRESSION: 1. Suspected acute infarcts, small to moderate-sized the right parietal occipital region and small on the left parietal lobe. Differential would include posterior reversible encephalopathy syndrome (PRES). No acute intracranial hemorrhage. Dr. Narayan discussed these findings with Dr. Guevara at 9:05 AM. Head/Neck CTA 02/17/25 09:16 IMPRESSION: 1. 0% stenosis of the right and left carotid bulbs relative to normal distal artery lumen diameter (NASCET criteria). 2. Normal cerebral CT angiogram with no aneurysm, hemodynamically significant stenosis or thrombosis. Chest X-Ray 02/17/25 09:55 IMPRESSION: 1: NO ACUTE CARDIOPULMONARY DISEASE. Brain MRI 02/17/25 14:17 IMPRESSION: 1. No acute intracranial process or abnormally enhancing brain lesions. 2. Couple small regions of encephalomalacia in the right parotid region consistent with prior infarct with subsequent secondary hemorrhagic transformation which is chronic. 3. Multiple scattered small foci of calcific white matter T2 hyperintensity, likely sequela of chronic small vessel ischemic disease. This includes a small T2 hyperintense lesion in the posterior left parietal subcortical white matter which accounts for the decreased density on prior CT at this location which raised suspicion for acute infarct. Labs Labs: Laboratory Results - last 24 hr 02/17/25 02/17/25 02/17/25 09:07 09:33 10:12 WBC 8.6 RBC 3.88 L Hgb 11.6 L Hct 35.2 L MCV 90.7 MCH 29.9 MCHC 33.0 RDW 13.0 Plt Count 197 MPV 11.2 H Immature Gran % (Auto) 0.2 Neut % (Auto) 50.0 Lymph % (Auto) 42.1 [place] % (Auto) 6.7 Eos % (Auto) 0.5 Baso % (Auto) 0.5 Lymph # (Auto) 3.63 H [place] # (Auto) 0.6 Eos # (Auto) 0.0 Baso # (Auto) 0.0 Abs Immat Gran (auto) 0.02 Absolute Neuts (auto) 4.3 Absolute Nucleated RBC 0.000 Nucleated RBC % 0.0 PT Cancelled INR APTT Sodium 134 L Potassium 4.4 Chloride 100 Carbon Dioxide 26 Anion Gap 8 BUN 19 H Creatinine 1.30 H 1.02 H Estim Creat Clear Calc Not Reportable Not Reportable Estimated GFR 41 L 54 L Glucose 251 H POC Capillary Glucose Lactic Acid Calcium 8.2 L Total Bilirubin 0.9 AST 39 H ALT 51 H Alkaline Phosphatase 53 Troponin I 0.013 Total Protein 7.5 Albumin 3.9 Prolactin 02/17/25 02/17/25 02/17/25 10:12 10:12 10:12 WBC RBC Hgb Hct MCV MCH MCHC RDW Plt Count MPV Immature Gran % (Auto) Neut % (Auto) Lymph % (Auto) [place] % (Auto) Eos % (Auto) Baso % (Auto) Lymph # (Auto) [place] # (Auto) Eos # (Auto) Baso # (Auto) Abs Immat Gran (auto) Absolute Neuts (auto) Absolute Nucleated RBC Nucleated RBC % PT 13.9 INR Cancelled 1.1 APTT Cancelled 27.8 Sodium Potassium Chloride Carbon Dioxide Anion Gap BUN Creatinine Estim Creat Clear Calc Estimated GFR Glucose POC Capillary Glucose Lactic Acid Calcium Total Bilirubin AST ALT Alkaline Phosphatase Troponin I Total Protein Albumin Prolactin 02/17/25 02/17/25 02/17/25 11:52 12:38 16:23 WBC RBC Hgb Hct MCV MCH MCHC RDW Plt Count MPV Immature Gran % (Auto) Neut % (Auto) Lymph % (Auto) [place] % (Auto) Eos % (Auto) Baso % (Auto) Lymph # (Auto) [place] # (Auto) Eos # (Auto) Baso # (Auto) Abs Immat Gran (auto) Absolute Neuts (auto) Absolute Nucleated RBC Nucleated RBC % PT INR APTT Sodium Potassium Chloride Carbon Dioxide Anion Gap BUN Creatinine Estim Creat Clear Calc Estimated GFR Glucose POC Capillary Glucose 182 H 103 Lactic Acid 1.3 Calcium Total Bilirubin AST ALT Alkaline Phosphatase Troponin I Total Protein Albumin Prolactin 19.4 Hospitalist MIPS Advance Care Plan I have confirmed that the patient's Advanced Care Plan is present, code status is documented, or surrogate decision maker is listed in patient medical record.: Yes Medication Reconciliation I have utilized all available resources to obtain, update and review the patients current medications (includes all prescriptions, OTC, herbals, cannabis, and nutritional supplements).: Yes
--- NOTE | 2025-02-18 11:00 | WPDNEUROLOGY ---
Neurology EEG Report General Information Date of Study: 02/17/25 TEST eeg
--- NOTE | 2025-02-18 11:03 | WPDNEUROLOGY ---
Neurology EEG Report General Information Date of Study: 02/17/25 TEST EEG
--- NOTE | 2025-02-18 11:06 | WPDNEUROLOGY ---
Neurology EEG Report General Information Date of Study: 02/17/25
--- NOTE | 2025-02-18 11:07 | WPDNEUROLOGY ---
Neurology EEG Report General Information Date of Study: 02/17/25 TEST EEG DIAGNOSIS new cerebrovascular accident CONDITION OF RECORDING awake and drowsy. EEG NUMBER [id number] CLINICAL HISTORY 63 years old lady came to ER with a seizure spell and stress [place] on the left side of the body. Patient had gotten up in the morning and sat on edge of bed, loss consciousness, and had a seizure. Patient started on Keppra in November twice a day. Niece of patient described episodes as his staring off for 10 to 15 minutes and she is very incoherent. If you ask her a question she was either not answer hemo or it will be a prolonged response. EEG DESCRIPTION Basic resting occipital frequency consists of low to medium voltage 9 to 11 hertz per 2nd alpha admixed with low-voltage 15 to 18 hertz per 2nd beta activity. Alpha activity symmetrically block with eyes opening. Low-voltage beta activity seen diffusely admixed waxing and waning posterior alpha rhythm during drowsiness. Hyperventilation not done. Photic stimulation not done. Non paroxysmal. Nonfocal. Nonlateralizing. IMPRESSION Normal record. Clinical correlation recommended as a normal EEG does not rule out the possibility of seizure disorder.
--- NOTE | 2025-02-18 22:35 | PC.NURSE ---
This patient, Suze Munoz, was transferred to [facility] on 02/18/25 at 2235 via bed with one RN and one tech and no issues . Personal belongings sent with patient. Report given to Krysta STEWART. Appropriate documentation sent with patient.
[2025-02-19] VITALS (7 sets, daily range): BP systolic 104; BP diastolic 55; PULSE 59–100; RESP 20; TEMP 36.8; O2SAT 98
[2025-02-19 06:33] LABS: Hematocrit 32.3 % (37.0-47.0); Hemoglobin 10.6 g/dL (12.0-15.0); Mean Corpuscular HGB Conc 32.8 g/dl (32-36); Mean Corpuscular Hemoglobin 30.0 pg (26-34); Mean Corpuscular Volume 91.5 fl (80-100); Platelet Count Result 176 k/mm3 (150-375); Red Blood Count 3.53 M/mm3 (4.2-5.4); White Blood Count 6.2 K/mm3 (4.5-10.0)
[2025-02-19 06:59] LABS: Alanine Aminotransferase 31 U/L (6-35); Albumin Level 3.6 g/dL (3.5-5.1); Alkaline Phosphatase 61 U/L (38-126); Anion Gap 5 mmol/L (4-12); Aspartate Amino Transferase 23 U/L (14-36); Bilirubin,Total 0.6 mg/dL (0.2-1.3); Blood Urea Nitrogen 18 mg/dL (7-17); Calcium 8.6 mg/dL (8.4-10.2); Carbon Dioxide 30 mmol/L (22-30); Chloride 103 mmol/L (98-107); Estimated CRCL calculation 38 ml/min; Estimated Glomerular Filt Rate 39; Glucose 117 mg/dL (65-110); Potassium 3.6 mmol/L (3.4-5.0); Sodium 138 mmol/L (137-145); Total Protein 7.0 g/dL (6.3-8.2)
[2025-02-19] MEDS: ATORVASTATIN 40 MG TABLET PO (08:53)
[2025-02-19] MEDS: CLOPIDOGREL BISULFATE 75 MG TABLET PO (08:53)
[2025-02-19] MEDS: ASPIRIN 81 MG ENTERIC TABLET PO (08:53)
[2025-02-19] MEDS: LOSARTAN POTASSIUM 100 MG TABLET PO (08:53)
[2025-02-19] MEDS: LACOSAMIDE (*CRX) 100 MG TABLET PO (08:53)
[2025-02-19] MEDS: EMPAGLIFLOZIN 10 MG TABLET PO (08:53)
[2025-02-19] MEDS: ACETAMINOPHEN 325 MG TABLET 650 MG PO (08:55)
[2025-02-19] MEDS: ENOXAPARIN 40 MG/0.4 ML SYRINGE SUB-Q (08:58)
[2025-02-19] MEDS: FLUTICASONE/SALMETEROL 115-21 MCG INHALER 1 PUFF 2 PUFF INHALATION (09:45)
--- NOTE | 2025-02-19 12:45 | P.DS_ITS ---
DS: Admitting Diagnosis Discharge Date 02/19/2025 Admitting Diagnosis Seizures DS: Discharge Diagnosis Discharge Diagnosis (1) Seizure disorder: Code(s): G40.909 - Epilepsy, unspecified, not intractable, without status epilepticus Status: Acute Assessment and Plan: Please refer to hospital course for brief summary (2) Hemianopsia: Code(s): H53.47 - Heteronymous bilateral field defects Status: Acute (3) Left-sided weakness: Code(s): R53.1 - Weakness Status: Acute (4) Matthew-neglect of left side: Code(s): R41.4 - Neurologic neglect syndrome Status: Acute (5) Acute cerebrovascular accident (CVA): Code(s): I63.9 - Cerebral infarction, unspecified Status: Acute (6) Uncontrolled type 2 diabetes mellitus: Status: Acute (7) THOMAS (acute kidney injury): Code(s): N17.9 - Acute kidney failure, unspecified Status: Acute (8) H/O CHF: Code(s): Z86.79 - Personal history of other diseases of the circulatory system Status: Acute (9) Stage 3b chronic kidney disease (CKD): Code(s): N18.32 - Chronic kidney disease, stage 3b Status: Acute (10) Congestive heart failure (CHF): Qualifiers: Heart failure chronicity: unspecified Heart failure type: unspecified Qualified Code(s): I50.9 - Heart failure, unspecified Code(s): I50.9 - Heart failure, unspecified Status: Acute (11) DM type 2 (diabetes mellitus, type 2): Code(s): E11.9 - Type 2 diabetes mellitus without complications Status: Acute (12) Uncontrolled hypertension: Code(s): I10 - Essential (primary) hypertension Status: Acute Plan 1. Weakness Likely secondary to seizure-Sandeep paralysis/acute CVA-less likely because a imaging study shows no acute intracranial abnormality Continue aspirin/Plavix Continue atorvastatin Continue neuro check q.4 Continue telemetry Echocardiogram shows Left ventricular systolic function is normal, estimated at 50-55 and EEG no significant abnormal findings 2. Insulin-dependent type 2 diabetes Lantus 26 continue Lantus 26 units daily POCT, SSI, hypoglycemia protocol will add jardiance 3. Seizure disorder Neurology consulted, appreciate rec Keppra increased from 1250 mg BID to 1500 mg BID Continue Vimpat 100 mg BID Follow up with EEG 4. Congestive heart failure/hypertension Continue carvedilol 12.5 b.i.d. Continue losartan 100 mg daily Continue hydralazine 25 mg 5. Dyslipidemia Continue atorvastatin 6. Asthma Continue Advair DS: Summary Hospital Course Hospital Course: Suze Munoz is a 64 year old female with past medical history of seizure disorder,, insulin-dependent type 2 diabetes, hypertension, dyslipidemia, CKD and CHF who presents for multiple seizure disorder and weakness on the right side. She reports that she has multiple breakthrough seizures over the years. This this morning shows workup with migraine the left side and on she did not remember after that. Her daughter was at the bedside with her good friend of the patient, they say that she the patient had multiple seizure-1 at home and 3 in the ambulance. She sees a neurologist, and takes Keppra 1250 mg b.i.d. and Vimpat 100 mg b.i.d. and she follows a neurologist in the regular manner. CT head and CT angio head and neck was unremarkable. MRI brain shows no acute abnormalities. In the ED, blood sugar was high 251. The rest of the lab was unremarkable. CBC was unremarkable. Patient was admitted to step-down unit for Neurology check. After the MRI brain unrevealing result, patient was transferred to medical floor with this new role check 6 times a day. 02/19/2025: Patient underwent EEG which did not show any significant abnormality. Echocardiogram shows left ventricular systolic function normal 55%. Patient was evaluated by Neurology advised to start the patient on aspirin and Plavix and increase atorvastatin from 20 mg to 40 mg. As per Neurology patient carries diagnosis of seizure disorder and has been on anticonvulsants started [facility] in November according to the patient whether she has a new stroke or a post ictal or Sandeep phenomenon require some follow-up. She does have left homonymous hemianopsia and matthew neglect of the left side of the body and sensory loss in the left side of the body. This required some clinical follow-up. Patient Keppra has been increased from 1000 mg b.i.d. to 1500 mg b.i.d.. Patient will continue Vimpat same dosage 100 mg p.o. b.i.d.. Brain MRI shows no acute findings but chronic CVA. Refer to full report below Brain MRI:1. No acute intracranial process or abnormally enhancing brain lesions. 2. Couple small regions of encephalomalacia in the right parotid region consistent with prior infarct with subsequent secondary hemorrhagic transformation which is chronic. 3. Multiple scattered small foci of calcific white matter T2 hyperintensity, likely sequela of chronic small vessel ischemic disease. This includes a small T2 hyperintense lesion in the posterior left parietal subcortical white matter which accounts for the decreased density on prior CT at this location which raised suspicion for acute infarct. On the day of discharge, the patient was seen and examined. Vital signs were stable. Physical exam were stable and labs were reviewed at length. Discharge instructions, medications, and follow-up appointments were discussed with the patient at length and all day questions were answered. ER warnings were given. Status at Discharge Cognitive/behavioral status at discharge: Stable Time Spent with Patient Time attestation: Total time spent providing and/or coordinating discharge services: 45 minutes Exam Narrative: APPEARANCE: Obese, cut on the lip from fall. No acute distress, nontoxic, joking with her best friend EYES: EOMI HEENT: Normocephalic, atraumatic, OMM RESPIRATORY: No respiratory distress Clear to auscultation bilaterally with no rhonchi wheezing or rales. CARDIOVASCULAR: RRR, S1 and S2 without murmurs rubs or gallops. ABDOMINAL: Soft, nontender, nondistended, no rebound or guarding MSK: 4/5 motor strength on the right upper extremity. 5/5 motor strength on the rest of her lower and upper extremity NEURO: Awake and alert. Following commands, speech normal, no focal deficits SKIN:: Warm, dry. No rashes lesions or abrasions PSYCHIATRIC: Normal affect/mood DS: Data Data Completed and Pending Labs on day of discharge: Labs from last 24 hours 02/19/25 05:56 WBC 6.2 RBC 3.53 L Hgb 10.6 L Hct 32.3 L MCV 91.5 MCH 30.0 MCHC 32.8 RDW 13.1 Plt Count 176 MPV 10.8 H Sodium 138 Potassium 3.6 Chloride 103 Carbon Dioxide 30 Anion Gap 5 BUN 18 H Creatinine 1.35 H Estim Creat Clear Calc 38 Estimated GFR 39 L Glucose 117 H Calcium 8.6 Total Bilirubin 0.6 AST 23 ALT 31 Alkaline Phosphatase 61 Total Protein 7.0 Albumin 3.6 Imaging Radiologist's impression: ITS Impressions Head CT 02/17/25 09:11 IMPRESSION: 1. Suspected acute infarcts, small to moderate-sized the right parietal occipital region and small on the left parietal lobe. Differential would include posterior reversible encephalopathy syndrome (PRES). No acute intracranial hemorrhage. Dr. Narayan discussed these findings with Dr. Guevara at 9:05 AM. Head/Neck CTA 02/17/25 09:16 IMPRESSION: 1. 0% stenosis of the right and left carotid bulbs relative to normal distal artery lumen diameter (NASCET criteria). 2. Normal cerebral CT angiogram with no aneurysm, hemodynamically significant stenosis or thrombosis. Chest X-Ray 02/17/25 09:55 IMPRESSION: 1: NO ACUTE CARDIOPULMONARY DISEASE. Brain MRI 02/17/25 14:17 IMPRESSION: 1. No acute intracranial process or abnormally enhancing brain lesions. 2. Couple small regions of encephalomalacia in the right parotid region consistent with prior infarct with subsequent secondary hemorrhagic transformation which is chronic. 3. Multiple scattered small foci of calcific white matter T2 hyperintensity, likely sequela of chronic small vessel ischemic disease. This includes a small T2 hyperintense lesion in the posterior left parietal subcortical white matter which accounts for the decreased density on prior CT at this location which raised suspicion for acute infarct. Discharge Plan Discharge Attending physician on discharge: Daniel Smith Consulting providers: Angelito Ferreira Discharging Clinician: Daniel Smith Anticipated Discharge Date/Time: 02/19/25 12:53 Patient Disposition: Home Activity: no driving Diet: diabetic Discharge Instructions: Please closely follow-up with neurologist. Keppra has been increased from 1000 mg b.i.d. to 1500 mg b.i.d.. Patient will continue Vimpat same dosage 100 mg p.o. b.i.d. If any concerning symptoms please return to ED Patient Instructions: Antibiotic Form, Heart Failure (DC), Ischemic Stroke (DC) Patient Language: Filipino Stand Alone Forms: General Discharge Information Follow-up/Referrals: Edwian,DO Rob [Primary Care Provider] Angelito Ferreira MD [Physician, Neurology] Discharge Medications: New levetiracetam [Keppra] 500 mg Tablet 1,500 mg PO Q12HR Qty: 30 0RF clopidogrel 75 mg Tablet 75 mg PO QAM Qty: 30 0RF Jardiance 10 mg Tablet 10 mg PO DAILY Qty: 30 0RF Continued furosemide 40 mg tablet 40 mg PO DAILY aspirin [Aspir-81] 81 mg Tablet,Delayed Release (Dr/Ec) 81 mg PO DAILY sitagliptin phosphate 100 mg Tablet 100 mg PO DAILY insulin glargine [Lantus Solostar U-100 Insulin] 100 unit/mL (3 mL) insulin pen 26 unit SUBCUT DAILY (DME) True Metrix Glucose Test Strip Strip MISCELLANEOUS albuterol sulfate [Ventolin HFA] 90 mcg/actuation HFA aerosol inhaler 2 inh inhalation Q4H PRN (Reason: shortness of breath or wheezing) atorvastatin 40 mg tablet 40 mg PO DAILY carvedilol 12.5 mg tablet 12.5 mg PO Q12H acetaminophen 500 mg tablet 500 mg PO Q4H PRN (Reason: fever or pain) fluticasone propion-salmeterol 250-50 mcg/dose blister with device 1 inh INHALATION Q12H hydralazine 25 mg tablet 25 mg PO Q12H lacosamide 100 mg tablet 100 mg PO Q12H levetiracetam 250 mg tablet 250 mg PO Q12H losartan 100 mg tablet 100 mg PO DAILY potassium chloride [Klor-Con 10] 10 mEq tablet extended release 10 meq PO DAILY Discontinued levetiracetam 1,000 mg tablet 1,000 mg PO Q12H Date of admission: 02/17/25 10:08 Primary Care Provider: Edwina,Rob Admitting Provider: Dereje Mack Attending physician on admission: Dereje Mack Condition: Serious
== END 2025-02-19 15:00 | disposition home or self-care (01) | DRG 101 ==
LOC: ANHED 09:11 → ANHIMU 10:40 → ANH3MED 02-19 12:27 → ANHIMU 02-20 09:10
PROVIDERS: Student in an Organized Health Care Education/Training Program; Admitting Provider Internal Medicine; Emergency Provider Emergency Medicine; PCP Student in an Organized Health Care Education/Training Program; Visit Provider General Practice
DX: G40.909 Epilepsy, unspecified, not intractable, without status epilepticus (principal); R41.4 Neurologic neglect syndrome; I13.0 Hypertensive heart and chronic kidney disease with heart failure and stage 1 through stage 4 chronic kidney disease, or unspecified chronic kidney disease; G43.909 Migraine, unspecified, not intractable, without status migrainosus; E11.22 Type 2 diabetes mellitus with diabetic chronic kidney disease; N18.32 Chronic kidney disease, stage 3b; H53.47 Heteronymous bilateral field defects; I50.9 Heart failure, unspecified; E78.5 Hyperlipidemia, unspecified; K21.9 Gastro-esophageal reflux disease without esophagitis; J45.909 Unspecified asthma, uncomplicated; W06.XXXA Fall from bed, initial encounter; Z90.49 Acquired absence of other specified parts of digestive tract; I25.2 Old myocardial infarction; Z79.02 Long term (current) use of antithrombotics/antiplatelets; Z79.82 Long term (current) use of aspirin; Z79.4 Long term (current) use of insulin
CPT/HCPCS: 36415; 70450; 70496; 70498; 70553; 71045; 80053; 82948; 83605; 84146; 84484; 85025; 85027; 85610; 85730; 92610; 93005; 93306; 94640; 95816; 96365; 96375; 97162; 97165; 99285; A9270; A9577; J1650; J1815; J1953; Q9967